=== PATIENT | female | born 1940 | race Caucasian/White ===

== ENCOUNTER 2020-01-25 10:23 | Observation (INO) | payer MEDICARE, OTHER ==
--- NOTE | 2020-01-25 11:06 | EDM.PDOC ---
ED HPI GENERAL MEDICAL PROBLEM - General Chief Complaint: Abdominal Pain Stated Complaint: WEAKNESS/CAN'T TALK/STOMACH PAIN Time Seen by Provider: 01/25/20 10:45 Source of Information: Reports: Patient History Limitations: Reports: No Limitations - History of Present Illness INITIAL COMMENTS - FREE TEXT/NARRATIVE: This 79 yo female patient was brought to the ED by her sister due to not feeling well. The patient reports she has been having difficulties eating over the past month. The patient reports she was in to see Dr. Simons 2 weeks ago and given a steroid, but reports no improvement in her symptoms. When asked what the patient means by "not feeling well", the patient reports she gets stomach pains when she thinks about eating. The patient reports she has been loosing weight, but does not know how much weight she may have lost. The patient reports shortness of breath, but no progression of her shortness of breath. The patient reports she continues to smoke ("as much as she can"). The patient reports she is "not ready to go to the jail." Onset: Unknown/Unsure Duration: Week(s):, Constant Location: Reports: Generalized Quality: Reports: Other Severity: Moderate Improves with: Reports: None Worsens with: Reports: None Context: Reports: Other Associated Symptoms: Reports: No Other Symptoms - Related Data Allergies Allergy/AdvReac Type Severity Reaction Status Date / Time prednisone AdvReac Severe bilateral Verified 08/16/13 12:44 arm and shoulder pain Home Meds: Home Meds ALPRAZolam [Xanax] 0.25 mg PO QID PRN 08/16/13 [History] Aspirin [Ecotrin] 81 mg PO DAILY 08/16/13 [History] Calcium Carbonate/Vitamin D3 [Calcium 600-Vit D3 400 Tablet] 1 tab PO BID 08/16/13 [History] Cetirizine HCl [Zyrtec] 10 mg PO DAILY PRN 08/16/13 [History] Lisinopril 10 mg PO DAILY 08/16/13 [History] Lutein/Minerals/Vit A,C & E [Ocuvite] 1 tab PO DAILY 08/16/13 [History] hydroCHLOROthiazide [Hydrochlorothiazide] 25 mg PO DAILY 08/16/13 [History] Past Medical History HEENT History: Reports: Macular Degeneration Cardiovascular History: Reports: None Respiratory History: Reports: None Gastrointestinal History: Reports: None Genitourinary History: Reports: None CNA PCT History: Reports: None Musculoskeletal History: Reports: None Neurological History: Reports: None Psychiatric History: Reports: None Endocrine/Metabolic History: Reports: None Hematologic History: Reports: None Immunologic History: Reports: None Oncologic (Cancer) History: Reports: None Dermatologic History: Reports: None - Infectious Disease History Infectious Disease History: Reports: None - Past Surgical History Head Surgeries/Procedures: Reports: None Social & Family History - Family History Family Medical History: Noncontributory - Tobacco Use Smoking Status *Q: Heavy Tobacco Smoker Years of Tobacco use: 70 Packs/Tins Daily: 2 - Caffeine Use Caffeine Use: Reports: Soda - Recreational Drug Use Recreational Drug Use: No ED ROS GENERAL - Review of Systems Review Of Systems: Comprehensive ROS is negative, except as noted in HPI. ED EXAM, GENERAL - Physical Exam Exam: See Below Exam Limited By: No Limitations General Appearance: Alert, WD/WN, No Apparent Distress Eye Exam: Bilateral Eye: EOMI, Normal Inspection, PERRL Ears: Normal External Exam, Normal Canal, Hearing Grossly Normal, Normal TMs Nose: Normal Inspection, Normal Mucosa, No Blood Throat/Mouth: Normal Inspection, Normal Lips, Normal Teeth, Normal Gums, Normal Oropharynx, Normal Voice, No Airway Compromise Head: Atraumatic, Normocephalic Neck: Normal Inspection, Supple, Non-Tender, Full Range of Motion Respiratory/Chest: Decreased Breath Sounds, Crackles Cardiovascular: Normal Peripheral Pulses, Regular Rate, Rhythm, No Edema, No Gallop, No JVD, No Murmur, No Rub GI/Abdominal: Normal Bowel Sounds, Soft, Non-Tender, No Distention, No Abnormal Bruit, No Mass (Female) Exam: Deferred Rectal (Female) Exam: Deferred Back Exam: Normal Inspection, Full Range of Motion, NT Extremities: Mottled Neurological: Alert, Oriented, CN II-XII Intact, Normal Cognition, Normal Gait Psychiatric: Normal Affect, Normal Mood Skin Exam: Warm, Dry, Intact, No Rash Lymphatic: No Adenopathy Course - Vital Signs Last Recorded V/S: Last Vital Signs Temp 36.6 C 01/25/20 10:39 Pulse 74 01/25/20 10:39 Resp 18 01/25/20 10:39 BP 93/53 L 01/25/20 10:39 Pulse Ox 83 L 07/21/20 10:39 - Orders/Labs/Meds Orders: Active Orders 24 hr Category Date Time Status Admission Diagnosis [ADT] Urgent ADT 01/25/20 12:00 Ordered Admission Status [Patient Status] [ADT] Routine ADT 01/25/20 12:00 Ordered EKG Documentation Completion [RC] STAT Care 01/25/20 10:37 Active CULTURE BLOOD [BC] Stat Lab 01/25/20 10:37 Ordered REFLEX LACTIC ACID YES OR NO [CHEM] Routine Lab 01/25/20 11:38 Received UA RFX RAMBO AND CULT IF INDIC [URIN] Urgent Lab 01/25/20 10:37 Ordered Labs: Laboratory Tests 01/25/20 01/25/20 01/25/20 Range/Units 10:45 10:58 10:58 WBC 9.1 (5.0-10.0) 10^3/uL RBC 3.48 L (4.2-5.4) 10^6/uL Hgb 11.7 L (12.0-16.0) g/dL Hct 34.2 L (37.0-47.0) % MCV 98.3 D (80-100) fL MCH 33.6 (27.0-34.0) pg MCHC 34.2 (33.0-35.0) g/dL Plt Count 303 D (150-450) 10^3/uL Neut % (Auto) 81.6 H (42.2-75.2) % Lymph % (Auto) 8.0 L (20.5-50.1) % Nash % (Auto) 10.0 H (2-8) % Eos % (Auto) 0.2 L (1.0-3.0) % Baso % (Auto) 0.2 (0.0-1.0) % Sodium 136 (136-145) mmol/L Potassium 4.2 (3.5-5.1) mmol/L Chloride 100 (98-107) mmol/L Carbon Dioxide 24 (21-32) mmol/L Anion Gap 16.2 H (7-13) mEq/L BUN 87 H (7-18) mg/dL Creatinine 2.82 H (0.55-1.02) mg/dL Est Cr Clr Drug Dosing 8.79 mL/min Estimated GFR (MDRD) 16 BUN/Creatinine Ratio 30.9 (No establ ref range) Glucose 172 H (74-99) mg/dL Lactic Acid (0.4-2.0) mmol/L Calcium 9.6 (8.5-10.1) mg/dL Total Bilirubin 0.3 (0.2-1.0) mg/dL AST 22 (15-37) U/L ALT 30 (14-59) U/L Alkaline Phosphatase 60 (46-116) U/L Troponin I 0.055 (0.000-0.056) ng/mL Total Protein 6.6 (6.4-8.2) g/dL Albumin 3.4 (3.4-5.0) g/dL Globulin 3.2 Albumin/Globulin Ratio 1.1 COVID-19 (DARIO) Negative (NEGATIVE) 01/25/20 Range/Units 10:58 WBC (5.0-10.0) 10^3/uL RBC (4.2-5.4) 10^6/uL Hgb (12.0-16.0) g/dL Hct (37.0-47.0) % MCV (80-100) fL MCH (27.0-34.0) pg MCHC (33.0-35.0) g/dL Plt Count (150-450) 10^3/uL Neut % (Auto) (42.2-75.2) % Lymph % (Auto) (20.5-50.1) % Nash % (Auto) (2-8) % Eos % (Auto) (1.0-3.0) % Baso % (Auto) (0.0-1.0) % Sodium (136-145) mmol/L Potassium (3.5-5.1) mmol/L Chloride (98-107) mmol/L Carbon Dioxide (21-32) mmol/L Anion Gap (7-13) mEq/L BUN (7-18) mg/dL Creatinine (0.55-1.02) mg/dL Est Cr Clr Drug Dosing mL/min Estimated GFR (MDRD) BUN/Creatinine Ratio (No establ ref range) Glucose (74-99) mg/dL Lactic Acid 2.2 H* (0.4-2.0) mmol/L Calcium (8.5-10.1) mg/dL Total Bilirubin (0.2-1.0) mg/dL AST (15-37) U/L ALT (14-59) U/L Alkaline Phosphatase (46-116) U/L Troponin I (0.000-0.056) ng/mL Total Protein (6.4-8.2) g/dL Albumin (3.4-5.0) g/dL Globulin Albumin/Globulin Ratio COVID-19 (DARIO) (NEGATIVE) Departure - Departure Time of Disposition: 12:02 Disposition: Admitted As Inpatient 64 Condition: Fair Clinical Impression: Dehydration Acute renal failure Qualifiers: Acute renal failure type: unspecified Qualified Code(s): N17.9 - Acute kidney failure, unspecified - Discharge Information *PRESCRIPTION DRUG MONITORING PROGRAM REVIEWED*: Not Applicable *COPY OF PRESCRIPTION DRUG MONITORING REPORT IN PATIENT JULIET: Not Applicable Care Plan Goals: Discussed the patient's history, examination, lab, EKG and x-ray results with Dr. Simons. Dr. Simons accepted the patient for continued evaluation and further management as an observation patient at [facility]. Sepsis Event Note (ED) - Evaluation Sepsis Screening Result: No Definite Risk - Focused Exam Vital Signs: Vital Signs Temp Pulse Resp BP Pulse Ox 01/25/20 10:39 36.6 C 74 18 93/53 L 83 L - My Orders Last 24 Hours: My Active Orders 01/25/20 10:37 EKG Documentation Completion [RC] STAT CULTURE BLOOD [BC] Stat UA RFX RAMBO AND CULT IF INDIC [URIN] Urgent 01/25/20 11:38 REFLEX LACTIC ACID YES OR NO [CHEM] Routine 01/25/20 12:00 Admission Diagnosis [ADT] Urgent Admission Status [Patient Status] [ADT] Routine - Assessment/Plan Last 24 Hours: My Active Orders 01/25/20 10:37 EKG Documentation Completion [RC] STAT CULTURE BLOOD [BC] Stat UA RFX RAMBO AND CULT IF INDIC [URIN] Urgent 01/25/20 11:38 REFLEX LACTIC ACID YES OR NO [CHEM] Routine 01/25/20 12:00 Admission Diagnosis [ADT] Urgent Admission Status [Patient Status] [ADT] Routine
--- NOTE | 2020-01-25 11:29 | CR ---
PROCEDURE INFORMATION: Exam: XR Chest, 2 Views Exam date and time: 01/25/2020 10:56 AM Age: 79 years old Clinical indication: Shortness of breath; Additional info: Short of breath TECHNIQUE: Imaging protocol: XR of the chest Views: 2 views. COMPARISON: CT Chest w Cont 08/16/2013 2:39 PM FINDINGS: Lungs: The lungs are hyperinflated. Mild coarsening of the lung markings is likely chronic. There is no focal consolidation. Pleural space: Unremarkable. No pleural effusion. No pneumothorax. Heart/Mediastinum: Unremarkable. No cardiomegaly. Bones/joints: Degenerative changes involve the spine. Soft tissues: Nipple shadows project bilaterally. IMPRESSION: Hyperinflation and chronic changes, without focal disease.
[2020-01-25 11:35] LABS: ANION GAP 16.2 mEq/L (7-13)
[2020-01-25] MEDS ORDERED: Docusate Sodium 100 MG Cap PO PRN (12:20)
[2020-01-25] MEDS ORDERED: Acetaminophen 325 MG Tab PO PRN (12:20)
[2020-01-25] MEDS: Lactated Ringers 1,000 ML IV SCH ×2 (14:28→20:54)
--- NOTE | 2020-01-25 15:08 | HP ---
CHIEF COMPLAINT: Weight loss and dyspepsia. HISTORY OF PRESENT ILLNESS: The patient is an 79-year-old lady with past medical history of hypertension and anxiety, was admitted through the emergency room because the patient has not been feeling well for the last couple of weeks and has been having difficulty eating for the past month because every time she eats she would have some dyspepsia and some epigastric discomfort, and with this, she has been losing some weight because of decreased oral intake. The patient denies though any chest pain, fever, chills, shortness of breath. Denies any melena, hematochezia, or dysuria nor any other agitated symptoms, and because of the above, she was seen in the emergency room, and in the Emergency Room, her BUN and creatinine were elevated, and she is slightly anemic. Because of the above, she was then admitted for further evaluation and management. PAST MEDICAL HISTORY: As in [facility]. FAMILY HISTORY: Noncontributory. SOCIAL HISTORY: The patient is a . Smokes cigarettes on a regular basis. Drinks alcohol occasionally. REVIEW OF SYSTEMS: As in [facility]. The rest of the review of systems is negative. HOME MEDICATION: 1. Xanax. 2. Aspirin. 3. Calcium with vitamin D. 4. Zyrtec. 5. Lisinopril. 6. Ocuvite. 7. Hydrochlorothiazide. ALLERGIES: No known drug allergies. PHYSICAL EXAMINATION: General: The patient is alert and oriented, not in any acute distress. Vital Signs: Blood pressure is 93/53, pulse of 74, respiration of 18, and saturation is 83% on room air. SHEENT: Normocephalic. There are pink palpebral conjunctivae. Sclerae anicteric. No JVD. No lymphadenopathy. Heart: Regular rate and rhythm. Normal S1 and S2. No gallops. No rubs. Lungs: Diminished breath sounds on both bases, but no significant crackles, no wheezing. Abdomen: Scaphoid, soft. There is mild direct tenderness in epigastric area. No rebound. Bowel sounds positive. Extremities: Negative for any pedal edema. No calf tenderness. LABORATORY DATA: CBC: WBC is 9.1, hemoglobin is 11.7, hematocrit is 34.2, platelet is 303. Sodium is 136, potassium is 4.2, chloride of 100, carbon dioxide is 24, anion gap is 16.2, BUN is 87, and creatinine is 2.82. Glucose is 172. Lactic acid is 2.2. The rest of the panel is negative and COVID-19 is negative. A chest x-ray shows some signs of COPD; otherwise, no focal consolidation or cardiomegaly, and there are no lung masses. ADMITTING DIAGNOSES: 1. Abdominal pain/dyspepsia, possible gastritis versus peptic ulcer disease. 2. Acute kidney injury, most likely from dehydration. 3. Mild anemia. 4. History of hypertension. 5. Anxiety. TREATMENT PLAN: The patient is going to be admitted to observation. She will be given IV fluids. She will be also given IV Protonix. We will send her stool for Hemoccult testing, and we will recheck BUN, creatinine in a.m. as well as her CBC. She will be a full code. [facility] /[id number]
[2020-01-25] MEDS: Nicotine 21 MG/24 Hr Patch TRDERM SCH (17:09)
--- NOTE | 2020-01-25 17:36 | CT ---
EXAMINATION: Abdomen Pelvis wo Cont SEX: Female AGE: 79 years CLINICAL HISTORY: 79-year-old, 80 lbs. 7 oz. female smoker with unexplained abdominal pain. "Left femoral neck fracture" (2007) and "large pleural effusion with underlying infiltrate/atelectasis" reported on previous CT scan chest, August 2013. SCAN TECHNIQUE: Volume acquisition of data unenhanced CT scan abdomen and pelvis obtained with the patient lying supine on the Siemens multislice scanner [place], [place]. All data archived in the PACS system for storage, reformatting axial/sagittal/coronal planes and study. INTERPRETATION: 1. Hyperinflation of the lung morgan and some atelectasis/pleural parenchymal scar, left base (tiny 4 mm nodule posterior segment right lower lobe). Lung bases otherwise clear. 2. Calcification scattered along the course of normal caliber aortoiliac vessels. No aneurysm or dissection. 3. 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 Clinical? Unenhanced liver, stomach, spleen, pancreas and kidneys unremarkable. 4. No abdominal or pelvic mass lesion. No sign of mesenteric or retroperitoneal lymphadenopathy. 5. No mechanical bowel obstruction, ascites or free intraperitoneal air. 6. Total left hip (orthopedic) replacement. Osteoporosis, exaggerated lumbar lordosis, L5-S1 disc disease. CONCLUSION: No sign of intra-abdominal malignancy, abdominal aortic aneurysm, mechanical bowel obstruction, or acute peritonitis. Lung bases hyperinflated but no appreciable infiltrate, mass or effusion. Left hip prosthesis. L5-S1 disc disease. 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
[2020-01-25] MEDS: ALPRAZolam 0.25 MG Tab PO PRN (21:00)
[2020-01-25] MEDS: Pantoprazole 40 MG Vial IVPUSH SCH (21:03)
[2020-01-25] MEDS: rOPINIRole 2 MG Tab PO SCH (21:40)
[2020-01-26] MEDS: Lactated Ringers 1,000 ML IV SCH ×2 (04:40→13:12)
[2020-01-26 06:08] LABS: ANION GAP 11.9 mEq/L (7-13)
[2020-01-26] MEDS: Nicotine 21 MG/24 Hr Patch TRDERM SCH (08:50)
[2020-01-26] MEDS: Enoxaparin 30 MG/0.3 ML Syringe SUBCUT SCH (08:55)
[2020-01-26] MEDS: Pantoprazole 40 MG Vial IVPUSH SCH ×2 (09:33→20:55)
--- NOTE | 2020-01-26 09:59 | PCM.PN ---
- General Info Date of Service: 01/26/20 Admission Dx/Problem (Free Text): Acute kidney injury Subjective Update: No acute events overnight. Reports that she is feeling better. Was able to eat half of her breakfast. Denies fevers, chills, nausea, vomiting, diarrhea, constipation, dysuria, hematuria, or any new symptoms. - Patient Data Vitals - Most Recent: Last Vital Signs Temp 98.5 F 01/26/20 08:00 Pulse 77 01/26/20 08:00 Resp 16 01/26/20 08:00 BP 123/49 L 01/26/20 08:00 Pulse Ox 100 01/26/20 08:00 Weight - Most Recent: 80 lb 7 oz I&O - Last 24 Hours: Intake & Output 01/25/20 01/26/20 01/26/20 22:59 06:59 14:59 Intake Total 1322 893 250 Output Total 500 550 Balance 822 343 250 Lab Results Last 24 Hours: Laboratory Results - last 24 hr 01/25/20 01/25/20 01/25/20 Range/Units 10:45 10:50 10:58 WBC 9.1 (5.0-10.0) 10^3/uL RBC 3.48 L (4.2-5.4) 10^6/uL Hgb 11.7 L (12.0-16.0) g/dL Hct 34.2 L (37.0-47.0) % MCV 98.3 D (80-100) fL MCH 33.6 (27.0-34.0) pg MCHC 34.2 (33.0-35.0) g/dL Plt Count 303 D (150-450) 10^3/uL Neut % (Auto) 81.6 H (42.2-75.2) % Lymph % (Auto) 8.0 L (20.5-50.1) % Miller % (Auto) 10.0 H (2-8) % Eos % (Auto) 0.2 L (1.0-3.0) % Baso % (Auto) 0.2 (0.0-1.0) % ESR (0-20) mm/hr Sodium (136-145) mmol/L Potassium (3.5-5.1) mmol/L Chloride (98-107) mmol/L Carbon Dioxide (21-32) mmol/L Anion Gap (7-13) mEq/L BUN (7-18) mg/dL Creatinine (0.55-1.02) mg/dL Est Cr Clr Drug Dosing mL/min Estimated GFR (MDRD) BUN/Creatinine Ratio (No establ ref range) Glucose (74-99) mg/dL Lactic Acid (0.4-2.0) mmol/L Calcium (8.5-10.1) mg/dL Total Bilirubin (0.2-1.0) mg/dL AST (15-37) U/L ALT (14-59) U/L Alkaline Phosphatase (46-116) U/L Troponin I (0.000-0.056) ng/mL C-Reactive Protein 1.7 H (0.0-0.9) mg/dL Total Protein (6.4-8.2) g/dL Albumin (3.4-5.0) g/dL Globulin Albumin/Globulin Ratio Amylase (25-115) U/L Lipase (73-393) U/L COVID-19 (DARIO) Negative (NEGATIVE) 01/25/20 01/25/20 01/25/20 Range/Units 10:58 10:58 10:58 WBC (5.0-10.0) 10^3/uL RBC (4.2-5.4) 10^6/uL Hgb (12.0-16.0) g/dL Hct (37.0-47.0) % MCV (80-100) fL MCH (27.0-34.0) pg MCHC (33.0-35.0) g/dL Plt Count (150-450) 10^3/uL Neut % (Auto) (42.2-75.2) % Lymph % (Auto) (20.5-50.1) % Miller % (Auto) (2-8) % Eos % (Auto) (1.0-3.0) % Baso % (Auto) (0.0-1.0) % ESR 23 H (0-20) mm/hr Sodium 136 (136-145) mmol/L Potassium 4.2 (3.5-5.1) mmol/L Chloride 100 (98-107) mmol/L Carbon Dioxide 24 (21-32) mmol/L Anion Gap 16.2 H (7-13) mEq/L BUN 87 H (7-18) mg/dL Creatinine 2.82 H (0.55-1.02) mg/dL Est Cr Clr Drug Dosing 8.79 mL/min Estimated GFR (MDRD) 16 BUN/Creatinine Ratio 30.9 (No establ ref range) Glucose 172 H (74-99) mg/dL Lactic Acid 2.2 H* (0.4-2.0) mmol/L Calcium 9.6 (8.5-10.1) mg/dL Total Bilirubin 0.3 (0.2-1.0) mg/dL AST 22 (15-37) U/L ALT 30 (14-59) U/L Alkaline Phosphatase 60 (46-116) U/L Troponin I 0.055 (0.000-0.056) ng/mL C-Reactive Protein (0.0-0.9) mg/dL Total Protein 6.6 (6.4-8.2) g/dL Albumin 3.4 (3.4-5.0) g/dL Globulin 3.2 Albumin/Globulin Ratio 1.1 Amylase (25-115) U/L Lipase (73-393) U/L COVID-19 (DARIO) (NEGATIVE) 01/25/20 01/25/20 01/26/20 Range/Units 10:58 15:30 05:42 WBC 7.7 (5.0-10.0) 10^3/uL RBC 3.30 L (4.2-5.4) 10^6/uL Hgb 10.9 L (12.0-16.0) g/dL Hct 32.5 L (37.0-47.0) % MCV 98.5 (80-100) fL MCH 33.0 (27.0-34.0) pg MCHC 33.5 (33.0-35.0) g/dL Plt Count 261 (150-450) 10^3/uL Neut % (Auto) 76.2 H (42.2-75.2) % Lymph % (Auto) 10.2 L (20.5-50.1) % Miller % (Auto) 12.7 H (2-8) % Eos % (Auto) 0.8 L (1.0-3.0) % Baso % (Auto) 0.1 (0.0-1.0) % ESR (0-20) mm/hr Sodium (136-145) mmol/L Potassium (3.5-5.1) mmol/L Chloride (98-107) mmol/L Carbon Dioxide (21-32) mmol/L Anion Gap (7-13) mEq/L BUN (7-18) mg/dL Creatinine (0.55-1.02) mg/dL Est Cr Clr Drug Dosing mL/min Estimated GFR (MDRD) BUN/Creatinine Ratio (No establ ref range) Glucose (74-99) mg/dL Lactic Acid 1.6 (0.4-2.0) mmol/L Calcium (8.5-10.1) mg/dL Total Bilirubin (0.2-1.0) mg/dL AST (15-37) U/L ALT (14-59) U/L Alkaline Phosphatase (46-116) U/L Troponin I (0.000-0.056) ng/mL C-Reactive Protein (0.0-0.9) mg/dL Total Protein (6.4-8.2) g/dL Albumin (3.4-5.0) g/dL Globulin Albumin/Globulin Ratio Amylase 41 (25-115) U/L Lipase 116 (73-393) U/L COVID-19 (DARIO) (NEGATIVE) 01/26/20 Range/Units 05:42 WBC (5.0-10.0) 10^3/uL RBC (4.2-5.4) 10^6/uL Hgb (12.0-16.0) g/dL Hct (37.0-47.0) % MCV (80-100) fL MCH (27.0-34.0) pg MCHC (33.0-35.0) g/dL Plt Count (150-450) 10^3/uL Neut % (Auto) (42.2-75.2) % Lymph % (Auto) (20.5-50.1) % Miller % (Auto) (2-8) % Eos % (Auto) (1.0-3.0) % Baso % (Auto) (0.0-1.0) % ESR (0-20) mm/hr Sodium 142 (136-145) mmol/L Potassium 3.9 (3.5-5.1) mmol/L Chloride 105 (98-107) mmol/L Carbon Dioxide 29 (21-32) mmol/L Anion Gap 11.9 (7-13) mEq/L BUN 59 H D (7-18) mg/dL Creatinine 1.25 H D (0.55-1.02) mg/dL Est Cr Clr Drug Dosing 20.33 mL/min Estimated GFR (MDRD) 41 BUN/Creatinine Ratio (No establ ref range) Glucose 93 (74-99) mg/dL Lactic Acid (0.4-2.0) mmol/L Calcium 8.6 (8.5-10.1) mg/dL Total Bilirubin (0.2-1.0) mg/dL AST (15-37) U/L ALT (14-59) U/L Alkaline Phosphatase (46-116) U/L Troponin I (0.000-0.056) ng/mL C-Reactive Protein (0.0-0.9) mg/dL Total Protein (6.4-8.2) g/dL Albumin (3.4-5.0) g/dL Globulin Albumin/Globulin Ratio Amylase (25-115) U/L Lipase (73-393) U/L COVID-19 (DARIO) (NEGATIVE) Nico Results Last 24 Hours: Microbiology 01/26/20 07:40 Stool Occult Blood (NICO) - Final Stool / Feces NEGATIVE OCCULT BLOOD REFERENCE RANGE: NEGATIVE Med Orders - Current: Current Medications Acetaminophen (Tylenol) 650 mg PO Q4H PRN PRN Reason: Pain (Mild 1-3)/fever Alprazolam (Xanax) 0.25 mg PO QID PRN PRN Reason: Anxiety Last Admin: 01/25/20 21:00 Dose: 0.25 mg Documented by: Docusate Sodium (Colace) 100 mg PO BID PRN PRN Reason: Constipation Enoxaparin Sodium (Lovenox) 30 mg SUBCUT DAILY [facility] Last Admin: 01/26/20 08:55 Dose: 30 mg Documented by: Lactated Ringer's (Ringers, Lactated) 1,000 mls @ 125 mls/hr IV ASDIRECTED [facility] Last Admin: 01/26/20 04:40 Dose: 125 mls/hr Documented by: Miscellaneous Information (Check Patch) 1 ea TRDERM BEDTIME [facility] Last Admin: 01/25/20 21:03 Dose: 1 ea Documented by: Nicotine (Habitrol) 21 mg TRDERM DAILY [facility] Last Admin: 01/26/20 08:50 Dose: 21 mg Documented by: Pantoprazole Sodium (Protonix Iv) 40 mg IVPUSH Q12HR [facility] Last Admin: 01/26/20 09:33 Dose: 40 mg Documented by: Ropinirole HCl (Requip) 1 mg PO BEDTIME [facility] Last Admin: 01/25/20 21:40 Dose: 1 mg Documented by: Sodium Chloride (Saline Flush) 10 ml FLUSH ASDIRECTED PRN PRN Reason: Keep Vein Open - Exam General: Alert, Oriented, Cooperative, No Acute Distress HEENT: Pupils Equal, Pupils Reactive, Mucous Membr. Moist/[place] Neck: Supple, Trachea Midline Lungs: Clear to Auscultation, Normal Respiratory Effort Cardiovascular: Regular Rate, Regular Rhythm, No Murmurs GI/Abdominal Exam: Normal Bowel Sounds, Soft, Non-Tender Extremities: Non-Tender, No Pedal Edema Peripheral Pulses: 1+: Dorsalis Pedis (L), Dorsalis Pedis (R), 2+: Radial (L), Radial (R) Skin: Warm, Dry, Intact Neurological: No New Focal Deficit Psy/Mental Status: Alert, Normal Affect, Normal Mood Sepsis Event Note - Evaluation Sepsis Screening Result: No Definite Risk - Focused Exam Vital Signs: Vital Signs Temp Pulse Resp BP Pulse Ox 01/26/20 08:00 98.5 F 77 16 123/49 L 100 01/26/20 05:00 98 F 80 20 141/58 H 97 01/25/20 22:30 98.5 F 61 20 123/56 L 94 L Date Exam was Performed: 01/26/20 Time Exam was Performed: 09:56 - Problem List & Annotations (1) Anemia SNOMED Code(s): 575136326 Code(s): D64.9 - ANEMIA, UNSPECIFIED Status: Acute Current Visit: Yes (2) Acute renal failure SNOMED Code(s): 44788718 Code(s): N17.9 - ACUTE KIDNEY FAILURE, UNSPECIFIED Status: Acute Current Visit: No Qualifiers: Acute renal failure type: unspecified Qualified Code(s): N17.9 - Acute kidney failure, unspecified (3) Dehydration SNOMED Code(s): 88167422 Code(s): E86.0 - DEHYDRATION Status: Acute Current Visit: No (4) Unexplained weight loss SNOMED Code(s): 760258501 Code(s): R63.4 - ABNORMAL WEIGHT LOSS Status: Acute Current Visit: No - Problem List Review Problem List Initiated/Reviewed/Updated: Yes - Plan Plan:: Patient is an 79-year-old female with medical history significant for hypertension, anxiety, atrial fibrillation, osteoporosis, and parapneumonic effusion who is admitted for abdominal pain dyspepsia as well as acute kidney injury. Acute kidney injury: Patient presented with creatinine of 2.3. Improved with IV fluids to 1.25. Baseline creatinine is 0.7 Continue IV fluids Monitor renal function Avoid nephrotoxins #Abdominal pain/dyspepsia: Resolved. Patient reports that she longer has abdominal pain. States that appetite is improved and she was able to eat about half of her plate this morning Need to monitor #Anorexia #Adult BMI less than 19 Dietitian consulted, will appreciate input Continue nutritional needs #History of hypertension: Blood pressures at goal Continue current regimen #Anemia: Hemoglobin of 11.7, has gone down to 10.9, suspect hemodilution Monitor CBC
[2020-01-26] MEDS ORDERED: Loratadine 10 MG Tab PO PRN (11:38)
[2020-01-26] MEDS: Sodium Chloride 0.9% 10 ML Syringe FLUSH PRN ×2 (20:54→21:01)
[2020-01-26] MEDS: rOPINIRole 2 MG Tab PO SCH (21:04)
[2020-01-26] MEDS: ALPRAZolam 0.25 MG Tab PO PRN (21:06)
[2020-01-27 09:07] LABS: ANION GAP 13.1 mEq/L (7-13)
[2020-01-27] MEDS: Pantoprazole 40 MG Vial IVPUSH SCH (09:25)
[2020-01-27] MEDS: Nicotine 21 MG/24 Hr Patch TRDERM SCH (09:25)
[2020-01-27] MEDS: Enoxaparin 30 MG/0.3 ML Syringe SUBCUT SCH (09:25)
[2020-01-27] MEDS ORDERED: Potassium Chloride 10 MEQ Tab.ER PO ONE (10:00)
[2020-01-27] MEDS ORDERED: Phosphorus #1 250 MG Tab PO SCH (10:00)
--- NOTE | 2020-01-27 10:03 | PCM.DCSUM1 ---
Discharge Summary - Hospital Course Free Text/Narrative:: Patient is an 79-year-old female with medical history significant for hypertension, anxiety, atrial fibrillation, osteoporosis, and parapneumonic effusion who is admitted for abdominal pain dyspepsia as well as acute kidney injury. Patient's creatinine on presentation was 2.3. Improved with IV fluids to 0.98. Dietitian was consulted. Patient's oral intake improved significantly. Her potassium came back at 3.1. She was given oral potassium replacement. Lisinopril was resumed. She had magnesium of 1.2 and received oral magnesium replacement. Phosphorus was 2.4 and she received phosphorus replacement. She is to follow-up with PCP and to obtain renal function panel with magnesium as outpatient. She is to continue oral phosphorus, magnesium, and potassium replacement until she is seen by PCP. Diagnosis: Stroke: No - Discharge Data Discharge Date: 01/27/20 Discharge Disposition: Home, Self-Care 01 Condition: Good - Referral to Home Health Primary Care Physician: PCP None - Discharge Diagnosis/Problem(s) (1) Anemia SNOMED Code(s): 250503956 ICD Code: D64.9 - ANEMIA, UNSPECIFIED Status: Acute Current Visit: Yes (2) Acute renal failure SNOMED Code(s): 34241129 ICD Code: N17.9 - ACUTE KIDNEY FAILURE, UNSPECIFIED Status: Acute Current Visit: No Qualifiers: Acute renal failure type: unspecified Qualified Code(s): N17.9 - Acute kidney failure, unspecified (3) Dehydration SNOMED Code(s): 19320015 ICD Code: E86.0 - DEHYDRATION Status: Acute Current Visit: No (4) Unexplained weight loss SNOMED Code(s): 864195042 ICD Code: R63.4 - ABNORMAL WEIGHT LOSS Status: Acute Current Visit: No - Discharge Plan *PRESCRIPTION DRUG MONITORING PROGRAM REVIEWED*: Not Applicable *COPY OF PRESCRIPTION DRUG MONITORING REPORT IN PATIENT JULIET: Not Applicable Prescriptions/Med Rec: Magnesium Oxide 250 mg PO BIDM #10 tablet Phosphorus #1 [Neutra-Phos] 250 mg PO BID #10 tab Home Medications: Home Meds ALPRAZolam [Xanax] 0.5 mg PO BID PRN 08/16/13 [History] Cetirizine HCl [Zyrtec] 10 mg PO DAILY PRN 08/16/13 [History] Lisinopril 20 mg PO DAILY 02/10/14 [History] hydroCHLOROthiazide [Hydrochlorothiazide] 25 mg PO DAILY 08/16/13 [History] Aspirin [Aspirin EC] 81 mg PO DAILY 01/25/20 [History] Calc/D3/Mag/Zn/Jayla/Jamir/[place] [Calcium 600 MG Plus Vit D] 1 tab PO BID 01/25/20 [History] Cholecalciferol (Vitamin D3) [Vitamin D] 2,000 mg PO DAILY 01/25/20 [History] Diltiazem [Tiazac] 300 mg PO DAILY 01/25/20 [History] Escitalopram [Lexapro] 10 mg PO DAILY 01/25/20 [History] Glucosamine HCl 2,000 mg PO DAILY 01/25/20 [History] Lutein/Minerals/Vit A,C & E [Ocuvite] 1 tab PO BID 01/25/20 [History] Potassium Chloride [Klor-Con 10] 10 meq PO DAILY 01/25/20 [History] Raloxifene [Evista] 60 mg PO DAILY 01/25/20 [History] rOPINIRole [Requip] 1 mg PO DAILY 01/25/20 [History] traMADol [Ultram] 50 mg PO Q8HR PRN 01/25/20 [History] Magnesium Oxide 250 mg PO BIDM #10 tablet 01/27/20 [Rx] Phosphorus #1 [Neutra-Phos] 250 mg PO BID #10 tab 01/27/20 [Rx] Phosphorus #1 [Neutra-Phos] 250 mg PO QID tablet 01/27/20 [Rx] Referrals: Sebas Simons MD [Physician] - - Discharge Summary/Plan Comment DC Time >30 min.: Yes - General Info Date of Service: 01/27/20 Admission Dx/Problem (Free Text: Acute kidney injury Subjective Update: No acute events overnight. Reports that she is feeling better. Has had improved oral intake.. Denies fevers, chills, nausea, vomiting, diarrhea, constipation, dysuria, hematuria, or any new symptoms. - Patient Data Vitals - Most Recent: Last Vital Signs Temp 97.6 F 01/27/20 07:25 Pulse 83 01/27/20 07:25 Resp 18 01/27/20 07:25 BP 133/72 01/27/20 07:25 Pulse Ox 100 01/26/20 20:10 Weight - Most Recent: 80 lb 7 oz I&O - Last 24 hours: Intake & Output 01/26/20 01/27/20 01/27/20 22:59 06:59 14:59 Intake Total 600 400 Output Total 100 Balance 600 300 Lab Results - Last 24 hrs: Laboratory Results - last 24 hr 01/27/20 01/27/20 Range/Units 08:50 08:50 Sodium 143 (136-145) mmol/L Potassium 3.1 L (3.5-5.1) mmol/L Chloride 103 (98-107) mmol/L Carbon Dioxide 30 (21-32) mmol/L Anion Gap 13.1 H (7-13) mEq/L BUN 30 H D (7-18) mg/dL Creatinine 0.98 (0.55-1.02) mg/dL Est Cr Clr Drug Dosing 25.93 mL/min Estimated GFR (MDRD) 54 Glucose 142 H (74-99) mg/dL Calcium 8.4 L (8.5-10.1) mg/dL Phosphorus 2.4 L (2.6-4.7) mg/dL Magnesium 1.2 L (1.8-2.4) mg/dL RAMBO Results - Last 24 hrs: Microbiology 01/26/20 07:40 Stool Occult Blood (RAMBO) - Final Stool / Feces NEGATIVE OCCULT BLOOD REFERENCE RANGE: NEGATIVE Med Orders - Current: Current Medications Acetaminophen (Tylenol) 650 mg PO Q4H PRN PRN Reason: Pain (Mild 1-3)/fever Alprazolam (Xanax) 0.25 mg PO QID PRN PRN Reason: Anxiety Last Admin: 01/26/20 21:06 Dose: 0.25 mg Documented by: Docusate Sodium (Colace) 100 mg PO BID PRN PRN Reason: Constipation Enoxaparin Sodium (Lovenox) 30 mg SUBCUT DAILY [facility] Last Admin: 01/27/20 09:25 Dose: Not Given Documented by: Loratadine (Claritin) 10 mg PO DAILY PRN PRN Reason: Congestion Last Admin: 01/26/20 13:15 Dose: 10 mg Documented by: Magnesium Oxide (Magnesium Oxide) 500 mg PO BIDMEALS [facility] Miscellaneous Information (Check Patch) 1 ea TRDERM BEDTIME [facility] Last Admin: 01/26/20 21:04 Dose: Not Given Documented by: Nicotine (Habitrol) 21 mg TRDERM DAILY [facility] Last Admin: 01/27/20 09:25 Dose: Not Given Documented by: Pantoprazole Sodium (Protonix Iv) 40 mg IVPUSH Q12HR [facility] Last Admin: 01/27/20 09:25 Dose: 40 mg Documented by: Ropinirole HCl (Requip) 1 mg PO BEDTIME [facility] Last Admin: 01/26/20 21:04 Dose: 1 mg Documented by: Sodium Chloride (Saline Flush) 10 ml FLUSH ASDIRECTED PRN PRN Reason: Keep Vein Open Last Admin: 01/26/20 21:01 Dose: 10 ml Documented by: Sodium Phosphate (Neutra-Phos) 500 mg PO QID [facility] Discontinued Medications Lactated Ringer's (Ringers, Lactated) 1,000 mls @ 75 mls/hr IV ASDIRECTED [facility] Last Admin: 01/26/20 13:12 Dose: 125 mls/hr Documented by: Potassium Chloride (Klor-Con 10) 40 meq PO ONETIME ONE Stop: 01/27/20 10:01 - Exam General: Reports: Alert, Oriented, Cooperative, No Acute Distress HEENT: Reports: Pupils Equal, Pupils Reactive, EOMI, Mucous Membr. Moist/[place] Neck: Reports: Supple, Trachea Midline Lungs: Reports: Clear to Auscultation, Normal Respiratory Effort Cardiovascular: Reports: Regular Rate, Regular Rhythm, No Murmurs GI/Abdominal Exam: Normal Bowel Sounds, Soft, Non-Tender Extremities: Non-Tender, No Pedal Edema, Normal Capillary Refill Skin: Reports: Warm, Dry, Intact Neurological: Reports: No New Focal Deficit Psy/Mental Status: Reports: Alert, Normal Affect
== END 2020-01-27 11:05 | disposition home or self-care (01) ==
LOC: DL.ED 10:23 → DL.MS 12:00
PROVIDERS: ADMIT Internal Medicine; ATTEND Internal Medicine
DX: N17.9 Acute kidney failure, unspecified (principal); E86.0 Dehydration; R10.13 Epigastric pain; F41.9 Anxiety disorder, unspecified; D64.9 Anemia, unspecified; R63.4 Abnormal weight loss; M81.0 Age-related osteoporosis without current pathological fracture; I48.91 Unspecified atrial fibrillation; I10 Essential (primary) hypertension; F17.210 Nicotine dependence, cigarettes, uncomplicated; Z20.828 Contact with and (suspected) exposure to other viral communicable diseases; Z68.1 Body mass index [BMI] 19.9 or less, adult; Z88.8 Allergy status to other drugs, medicaments and biological substances; Z79.82 Long term (current) use of aspirin; Z79.899 Other long term (current) drug therapy
CPT/HCPCS: 36415; 71046; 74176; 80048; 80053; 82150; 82272; 83605; 83690; 83735; 84100; 84484; 85025; 85651; 86140; 87040; 93005; 96361; 96372; 96374; 96376; 99284; 99285; A9270; C9113; G0378; J1650; J7120; U0002

== ENCOUNTER 2020-02-10 07:23 | Emergency (ER) | payer MEDICARE, OTHER ==
--- NOTE | 2020-02-10 07:26 | EDM.PDOC ---
"ED HPI GENERAL MEDICAL PROBLEM - General Chief Complaint: Lower Extremity Injury/Pain Stated Complaint: Fall Time Seen by Provider: 02/10/20 07:25 Source of Information: Reports: Patient, EMS, Old Records, RN, RN Notes Reviewed History Limitations: Reports: No Limitations - History of Present Illness INITIAL COMMENTS - FREE TEXT/NARRATIVE: Pt arrives to ER from home with c/o right hip pain. She states she fell last night on back porch. Pt has been able to bear weight. EMS reports no shortening or rotation of the right leg. Pain was unrelieved with ibuprofen, so she called 911. Denies any other injury. Pt indicates the pain is focal to the area of the right pubic rami. She is pain free while laying still supine. The pain is aggravated by ROM and especially weight bearing. Pt denies chest pain, cough, shortness of breath, eye irritation/drainage, loss of taste or smell, red tongue, rash or skin lesions, abdominal pain, N/V/D, fevers, chills, recent travel, or known exposure to confirmed or suspected COVID-19 cases. Onset: Sudden Onset Date: 02/09/20 Duration: Constant Location: Reports: Lower Extremity, Right Quality: Reports: Ache Severity: Severe Improves with: Reports: Immobilization Worsens with: Reports: Movement (and weight bearing/ambulation) Context: Reports: Other (Ground level fall.) Associated Symptoms: Reports: No Other Symptoms Treatments PROFESSOR OF RELIGION: Reports: NSAIDS Right Hip Pain Score (Numeric/FACES): 7 - Related Data Allergies Allergy/AdvReac Type Severity Reaction Status Date / Time prednisone AdvReac Severe bilateral Verified 01/25/20 12:24 arm and shoulder pain Home Meds: Home Meds ALPRAZolam [Xanax] 0.5 mg PO BID PRN 08/16/13 [History] Cetirizine HCl [Zyrtec] 10 mg PO DAILY PRN 08/16/13 [History] Lisinopril 20 mg PO DAILY 08/16/13 [History] hydroCHLOROthiazide [Hydrochlorothiazide] 25 mg PO DAILY 08/16/13 [History] Aspirin [Aspirin EC] 81 mg PO DAILY 01/25/20 [History] Calc/D3/Mag/Zn/Jayla/Jamir/[place] [Calcium 600 MG Plus Vit D] 1 tab PO BID 01/25/20 [History] Cholecalciferol (Vitamin D3) [Vitamin D] 2,000 mg PO DAILY 01/25/20 [History] Diltiazem [Tiazac] 300 mg PO DAILY 01/25/20 [History] Escitalopram [Lexapro] 10 mg PO DAILY 01/25/20 [History] Glucosamine HCl 2,000 mg PO DAILY 01/25/20 [History] Lutein/Minerals/Vit A,C & E [Ocuvite] 1 tab PO BID 01/25/20 [History] Potassium Chloride [Klor-Con 10] 10 meq PO DAILY 01/25/20 [History] Raloxifene [Evista] 60 mg PO DAILY 01/25/20 [History] rOPINIRole [Requip] 1 mg PO DAILY 01/25/20 [History] traMADol [Ultram] 50 mg PO Q8HR PRN 01/25/20 [History] Magnesium Oxide 250 mg PO BIDM #10 tablet 01/27/20 [Rx] Phosphorus #1 [Neutra-Phos] 250 mg PO BID #10 tab 01/27/20 [Rx] Phosphorus #1 [Neutra-Phos] 250 mg PO QID tablet 01/27/20 [Rx] Past Medical History HEENT History: Reports: Cataract, Macular Degeneration Cardiovascular History: Reports: Hypertension Respiratory History: Reports: None Other Respiratory History: history of two chest tubes Gastrointestinal History: Reports: None Genitourinary History: Reports: Acute Renal Failure INFRASTRUCTURE DIRECTOR History: Reports: None Musculoskeletal History: Reports: Arthritis Neurological History: Reports: None Psychiatric History: Reports: None Endocrine/Metabolic History: Reports: None Hematologic History: Reports: None Immunologic History: Reports: None Oncologic (Cancer) History: Reports: None Dermatologic History: Reports: None - Infectious Disease History Infectious Disease History: Reports: Measles - Past Surgical History Head Surgeries/Procedures: Reports: None HEENT Surgical History: Reports: Cataract Surgery Cardiovascular Surgical History: Reports: None GI Surgical History: Reports: None Female Surgical History: Reports: None Endocrine Surgical History: Reports: None Neurological Surgical History: Reports: None Musculoskeletal Surgical History: Reports: Hip Replacement Oncologic Surgical History: Reports: None Social & Family History - Family History Family Medical History: Noncontributory - Tobacco Use Smoking Status *Q: Current Every Day Smoker Tobacco Use Within Last Twelve Months: Cigarettes - Caffeine Use Caffeine Use: Reports: Soda - Living Situation & Occupation Living situation: Reports: Single, Alone Occupation: Retired Review of Systems - Review of Systems Review Of Systems: Comprehensive ROS is negative, except as noted in HPI. ED EXAM, GENERAL - Physical Exam Exam: See Below Exam Limited By: No Limitations General Appearance: Alert, No Apparent Distress, Other (Frail elderly female) Eye Exam: Bilateral Eye: Normal Inspection Nose: Normal Inspection, No Blood Throat/Mouth: Normal Inspection, Normal Lips, Normal Voice, No Airway Compromise Head: Atraumatic, Normocephalic Neck: Normal Inspection, Non-Tender, Full Range of Motion Respiratory/Chest: No Respiratory Distress, Lungs Clear, No Accessory Muscle Use, Chest Non-Tender, Decreased Breath Sounds Cardiovascular: Normal Peripheral Pulses, Regular Rate, Rhythm GI/Abdominal: Normal Bowel Sounds, Soft, Non-Tender, No Distention, Pelvis Stable Back Exam: Normal Inspection. No: CVA Tenderness (L), CVA Tenderness (R), Vertebral Tenderness Extremities: Normal Capillary Refill, Leg Pain (Pain to palpation over the right pubic rami area.), Limited Range of Motion (Rt hip due to pain.). No: Joint Swelling Neurological: Alert, Oriented, CN II-XII Intact, Normal Cognition, No Motor/Sensory Deficits Psychiatric: Normal Affect, Normal Mood Skin Exam: Warm, Dry, Intact, Normal Color, No Rash Course - Vital Signs Last Recorded V/S: Last Vital Signs Temp 99.6 F 02/10/20 07:23 Pulse 88 02/10/20 07:23 Resp 20 02/10/20 07:23 BP 134/62 02/10/20 07:23 Pulse Ox 94 L 02/10/20 07:23 - Radiology Interpretation Free Text/Narrative:: [facility] Final Radiology Report Call: [phone] assistance Online chat: [email or web address] Name: THAD DE Age: 79Years F Date: 02/10/2020 SSN: -- : 1940 Study: CT PELVIS WO CONT Requesting Physician: DIAZ MASCORRO Images: [id number] Addl Studies: Provided Clinical History: Fall, Rt hip pubic rami area pain Contrast: Without Contrast Medium: Contrast Amount: Contrast Method: Page 1 of 2 PROCEDURE INFORMATION: Exam: CT Pelvis Without Contrast; Skeletal Exam date and time: 02/10/2020 7:44 AM Age: 79 years old Clinical indication: Injury or trauma; Fall; Initial encounter; Fracture of pelvis & hip; Right; Not specified; Neck of femur, midcervical; Closed fracture; Injury date: 02/09/2020; Prior surgery; Surgery date: 6+ months; Surgery type: Left hip replacement; Additional info: Fall, RT hip pubic rami area pain TECHNIQUE: Imaging protocol: Computed tomography images of the pelvis without contrast. Exam focused on the skeletal structures. Radiation optimization: All CT scans at this facility use at least one of these dose optimization techniques: automated exposure control; mA and/or kV adjustment per patient size (includes targeted exams where dose is matched to clinical indication); or iterative reconstruction. COMPARISON: CT Abdomen Pelvis wo Cont 01/25/2020 2:09 PM FINDINGS: Stomach and bowel: Diverticulosis of the colon. Vasculature: Atherosclerotic disease. Bones/joints: Impacted subcapital right femoral fracture. Osteopenia. Status post left hip arthroplasty. Extensive beam hardening artifact from the hardware limits evaluation of adjacent structures. Degenerative disease and facet hypertrophy of the lower lumbar spine. Soft tissues: Unremarkable. IMPRESSION: Impacted subcapital right femoral fracture. KENISHATHAD | Final Radiology Report CONFIDENTIALITY STATEMENT This report is intended only for use by the referring physician, and only in accordance with law. If you received this in error, call [phone]. Page 2 of 2 Thank you for allowing us to participate in the care of your patient. Dictated and Authenticated by: Thomas Mix MD 02/10/2020 8:01 AM Central Time ([place] & [place]) Departure - Departure Time of Disposition: 08:24 Disposition: DC/Tfer to Acute Hospital 02 Condition: Good Clinical Impression: Closed right hip fracture Qualifiers: Encounter type: initial encounter Qualified Code(s): S72.001A - Fracture of u nspecified part of neck of right femur, initial encounter for closed fracture - Discharge Information *PRESCRIPTION DRUG MONITORING PROGRAM REVIEWED*: Not Applicable *COPY OF PRESCRIPTION DRUG MONITORING REPORT IN PATIENT JULIET: Not Applicable Forms: ED Department Discharge, Interfacility Transfer EMTALA Sepsis Event Note (ED) - Evaluation Sepsis Screening Result: No Definite Risk - Focused Exam Vital Signs: Vital Signs Temp Pulse Resp BP Pulse Ox 02/10/20 07:23 99.6 F 88 20 134/62 94 L"
--- NOTE | 2020-02-10 08:01 | CT ---
PROCEDURE INFORMATION: Exam: CT Pelvis Without Contrast; Skeletal Exam date and time: 02/10/2020 7:44 AM Age: 79 years old Clinical indication: Injury or trauma; Fall; Initial encounter; Fracture of pelvis & hip; Right; Not specified; Neck of femur, midcervical; Closed fracture; Injury date: 02/09/2020; Prior surgery; Surgery date: 6+ months; Surgery type: Left hip replacement; Additional info: Fall, RT hip pubic rami area pain TECHNIQUE: Imaging protocol: Computed tomography images of the pelvis without contrast. Exam focused on the skeletal structures. Radiation optimization: All CT scans at this facility use at least one of these dose optimization techniques: automated exposure control; mA and/or kV adjustment per patient size (includes targeted exams where dose is matched to clinical indication); or iterative reconstruction. COMPARISON: CT Abdomen Pelvis wo Cont 01/25/2020 2:09 PM FINDINGS: Stomach and bowel: Diverticulosis of the colon. Vasculature: Atherosclerotic disease. Bones/joints: Impacted subcapital right femoral fracture. Osteopenia. Status post left hip arthroplasty. Extensive beam hardening artifact from the hardware limits evaluation of adjacent structures. Degenerative disease and facet hypertrophy of the lower lumbar spine. Soft tissues: Unremarkable. IMPRESSION: Impacted subcapital right femoral fracture.
== END 2020-02-10 09:05 ==
LOC: DL.ED 07:23
DX: S72.011A Unspecified intracapsular fracture of right femur, initial encounter for closed fracture (principal); M19.90 Unspecified osteoarthritis, unspecified site; F17.210 Nicotine dependence, cigarettes, uncomplicated; I10 Essential (primary) hypertension; Z79.82 Long term (current) use of aspirin; Z79.899 Other long term (current) drug therapy; W19.XXXA Unspecified fall, initial encounter
CPT/HCPCS: 72192; 99284; 99285-25

== ENCOUNTER 2020-08-18 04:50 | Emergency (ER) | payer MEDICARE, OTHER ==
[2020-08-18 05:43] LABS: ANION GAP 13.5 mEq/L (7-13); CHLORIDE,CL 105 mmol/L (98-107); SODIUM,NA 141 mmol/L (136-145)
--- NOTE | 2020-08-18 05:50 | EDM.PDOC ---
ED HPI GENERAL MEDICAL PROBLEM - General Source of Information: Reports: Patient, Family, RN, RN Notes Reviewed History Limitations: Reports: No Limitations - History of Present Illness Onset: Today, Sudden Treatments ELECTROTYPE MOLDER: Reports: Dressing(s) <Stefany Muhammad - Last Filed: 08/18/20 06:42> <Arturo Edwardsian - Last Filed: 08/18/20 07:40> - General Chief Complaint: Head Injury Stated Complaint: FELL AND HIT HER HEAD ALIL CONFUSION Time Seen by Provider: 08/18/20 05:30 - History of Present Illness INITIAL COMMENTS - FREE TEXT/NARRATIVE: Patient is an 79 year old female who presents to ER with her sister with c/o head injury. Patient states she was up in the middle of the night looking for her . She states she does not remember falling or hitting her head. Patient's sister states the has been for 5 years. Patient has lymph edema of the lower legs bilaterally. Sister states there is a wound to the left lower leg that is healing. She just saw wound care on telemedicine. She has been having dressing changes to the left leg three times weekly. Patient states she had stents placed to the left leg "last fall". She is currently on Plavix. Patient states she gets up to the bathroom 3-4 times during the night. She denies any urgency or burning with urination. Incidental finding of pulsation and abnormal bruit to the abdomen. Looking back at past visits, this was not found. Patient also had a abdomen/pelvis CT in January 2020 in which an AAA was not found. Patient is alert and oriented to person, place, and date. She does state at this time she knows that her is . (Stefany Muhammad) - Related Data Allergies Allergy/AdvReac Type Severity Reaction Status Date / Time prednisone AdvReac Severe bilateral Verified 06/13/20 07:42 arm and shoulder pain Home Meds: Home Meds ALPRAZolam [Xanax] 0.5 mg PO QID PRN 06/13/20 [History] Acetaminophen [Tylenol Extra Strength] 500 mg PO Q6H PRN 06/13/20 [History] Aspirin [Halfprin] 81 mg PO DAILY 06/13/20 [History] Biotin 1,000 mcg PO DAILY 06/13/20 [History] Calcium Phosphate 1 tab PO DAILY 06/13/20 [History] Cetirizine [ZyrTEC] 10 mg PO DAILY 06/13/20 [History] Cholecalciferol (Vitamin D3) [Vitamin D3] 2,000 unit PO DAILY 06/13/20 [History] Clopidogrel Bisulfate [Plavix] 75 mg PO DAILY 06/13/20 [History] Cyanocobalamin (Vitamin B12) [Vitamin B13] 500 mcg PO DAILY 06/13/20 [History] Escitalopram Oxalate [Lexapro] 10 mg PO DAILY 06/13/20 [History] Ferrous Sulfate 324 mg PO WITHBREAKFAST 06/13/20 [History] Furosemide [Lasix] 20 mg PO DAILY 06/13/20 [History] Glucosamine [Glucosamine Sulfate] 1,000 mg PO DAILY 06/13/20 [History] Lidocaine 4% Top Soln LTA [LTA 360 Kit Top Soln] 1 applic TOP Q4H PRN 06/13/20 [History] Pantoprazole Sodium [Protonix] 40 mg PO DAILY 06/13/20 [History] Potassium Chloride [Klor-Con] 20 meq PO DAILY 06/13/20 [History] Raloxifene [Evista] 60 mg PO DAILY 06/13/20 [History] Vit A/Vit C/Vit E/Zinc/Copper [Preservision Areds Softgel] 1 cap PO DAILY 06/13/20 [History] rOPINIRole [Requip] 0.5 mg PO DAILY 06/13/20 [History] traMADol [Ultram] 50 mg PO Q4H PRN 06/13/20 [History] Past Medical History HEENT History: Reports: Cataract, Macular Degeneration Cardiovascular History: Reports: Hypertension Respiratory History: Reports: None Other Respiratory History: history of two chest tubes Gastrointestinal History: Reports: None Genitourinary History: Reports: Acute Renal Failure DATA COLLECTION ASSOCIATE History: Reports: None Musculoskeletal History: Reports: Arthritis Neurological History: Reports: None Psychiatric History: Reports: None Endocrine/Metabolic History: Reports: None Hematologic History: Reports: None Immunologic History: Reports: None Oncologic (Cancer) History: Reports: None Dermatologic History: Reports: None - Infectious Disease History Infectious Disease History: Reports: Measles - Past Surgical History Head Surgeries/Procedures: Reports: None HEENT Surgical History: Reports: Cataract Surgery Cardiovascular Surgical History: Reports: None GI Surgical History: Reports: None Female Surgical History: Reports: None Endocrine Surgical History: Reports: None Neurological Surgical History: Reports: None Musculoskeletal Surgical History: Reports: Hip Replacement Oncologic Surgical History: Reports: None <Stefany Muhammad - Last Filed: 08/18/20 06:42> Social & Family History - Family History Family Medical History: No Pertinent Family History - Caffeine Use Caffeine Use: Reports: Soda - Living Situation & Occupation Living situation: Reports: Single, Alone Occupation: Retired <Stefany Muhammad - Last Filed: 08/18/20 06:42> ED ROS GENERAL - Review of Systems Review Of Systems: Comprehensive ROS is negative, except as noted in HPI. <Stefany Muhammad Last Filed: 08/18/20 06:42> ED EXAM, HEAD INJURY - Physical Exam Exam: See Below Exam Limited By: Other (forgetful) General Appearance: Alert, No Apparent Distress Head: Scalp Lacerations (left occiputal), Scalp Hematoma, Scalp Tenderness. No: Active Bleeding Nexus Criteria: No: Posterior, Midline Cervical Tenderness, Evidence of Intoxication, Altered Level of Consciousness, Focal Neurological Deficit, Painful Distraction Injuries Eyes: Bilateral Eye: EOMI, Normal Inspection, PERRL (2, sluggish) Ears: Normal External Exam, Normal Canal, Hearing Grossly Normal, Normal TMs Nose: Normal Inspection Throat/Mouth: Normal Inspection, Normal Voice, No Airway Compromise Neck: Non-Tender, Full Range of Motion, Normal Alignment, Normal Inspection Respiratory: No Respiratory Distress, Lungs Clear, Normal Breath Sounds, No Accessory Muscle Use, Chest Non-Tender Cardiovascular: Normal Peripheral Pulses, Regular Rate, Rhythm, No Edema, No Gallop GI/Abdominal Exam: Other (abnormal abdominal bruit) (Female) Exam: Deferred Rectal (Female) Exam: Deferred Back Exam: Normal Inspection, Decreased Range of Motion Extremities: Pedal Edema, Limited Range of Motion, Other (left leg wrapped, lymphedema bilaterally, ) Neurologic: oil program compliance specialist II-XII nml As Tested, No Motor/Sensory Deficits, Alert, Normal Mood/Affect, Oriented x 3 Skin: Normal Color, Warm/Dry - [place] Coma Score Best Eye Response ([place]): (4) Open Spontaneously Best Verbal Response ([place]): (5) Oriented Best Motor Response ([place]): (6) Obeys Commands Kot[place] Total: 15 <Stefany Muhammad - Last Filed: 08/18/20 06:42> - Physical Exam Exam: See Below Exam Limited By: No Limitations General Appearance: Alert, No Apparent Distress, Thin Head: Scalp Hematoma Nexus Criteria: No: Posterior, Midline Cervical Tenderness, Evidence of Intoxication, Altered Level of Consciousness, Focal Neurological Deficit, Painful Distraction Injuries Eyes: Bilateral Eye: EOMI, Normal Inspection, PERRL Ears: Normal External Exam, Normal Canal, Hearing Grossly Normal, Normal TMs Nose: Normal Inspection, Normal Mucousa, No Blood Throat/Mouth: Normal Inspection, Normal Lips, Normal Oropharynx, Normal Voice, No Airway Compromise Neck: Non-Tender, Full Range of Motion, Normal Alignment, Normal Inspection. No: Tenderness Respiratory: No Respiratory Distress, Lungs Clear, Normal Breath Sounds, No Accessory Muscle Use, Chest Non-Tender Cardiovascular: Normal Peripheral Pulses, Regular Rate, Rhythm, No Gallop, No JVD, No Rub GI/Abdominal Exam: Normal Bowel Sounds, Soft, Non-Tender Back Exam: Normal Inspection Extremities: Pedal Edema, Arm Pain (Left elbow contusion), Other Neurologic: oil program compliance specialist II-XII nml As Tested, No Motor/Sensory Deficits, Alert, Normal Mood/Affect, Oriented x 3, Other (GCS 15 at 0700HRS and at discharge.) <Arturo Edwards - Last Filed: 08/18/20 07:40> Course <Stefany Muhammad - Last Filed: 08/18/20 06:42> <Arturo Edwards - Last Filed: 08/18/20 07:40> - Vital Signs Last Recorded V/S: See paper trauma chart for VS, reviewed by me. (Arturo Edwards) - Orders/Labs/Meds Orders: Active Orders 24 hr Category Date Time Status Abdomen Pelvis w Cont [CT] Urgent Exams 08/18/20 06:40 Stop Req Ang Abdomen Aorta w Bi Runoff [CT] Urgent Exams 08/18/20 06:55 Ordered Labs: Laboratory Tests 08/18/20 08/18/20 08/18/20 Range/Units 05:15 05:15 05:15 WBC 8.6 (5.0-10.0) 10^3/uL RBC 3.19 L (4.2-5.4) 10^6/uL Hgb 9.9 L D (12.0-16.0) g/dL Hct 31.8 L (37.0-47.0) % MCV 99.7 D (80-100) fL MCH 31.0 (27.0-34.0) pg MCHC 31.1 L (33.0-35.0) g/dL Plt Count 228 (150-450) 10^3/uL Neut % (Auto) 82.0 H (42.2-75.2) % Lymph % (Auto) 6.9 L (20.5-50.1) % Henry % (Auto) 10.5 H (2-8) % Eos % (Auto) 0.5 L (1.0-3.0) % Baso % (Auto) 0.1 (0.0-1.0) % PT 10.6 (9.0-12.0) SEC INR 1.1 (0.9-1.2) Sodium 141 (136-145) mmol/L Potassium 3.5 (3.5-5.1) mmol/L Chloride 105 (98-107) mmol/L Carbon Dioxide 26 (21-32) mmol/L Anion Gap 13.5 H (7-13) mEq/L BUN 30 H (7-18) mg/dL Creatinine 0.68 (0.55-1.02) mg/dL Est Cr Clr Drug Dosing TNP Estimated GFR (MDRD) > 60 BUN/Creatinine Ratio 44.1 (No establ ref range) Glucose 110 H (74-99) mg/dL Calcium 8.7 (8.5-10.1) mg/dL Total Bilirubin 0.2 (0.2-1.0) mg/dL AST 24 (15-37) U/L ALT 18 (14-59) U/L Alkaline Phosphatase 95 (46-116) U/L Total Protein 6.5 (6.4-8.2) g/dL Albumin 3.1 L (3.4-5.0) g/dL Globulin 3.4 Albumin/Globulin Ratio 0.91 Urine Color (YELLOW) Urine Appearance (CLEAR) Urine pH (5.0-9.0) Ur Specific [place] (1.005-1.030) Urine Protein (NEGATIVE) Urine Glucose (UA) (NEGATIVE) Urine Ketones (NEGATIVE) Urine Occult Blood (NEGATIVE) Urine Nitrite (NEGATIVE) Urine Bilirubin (NEGATIVE) Urine Urobilinogen (0.2-1.0) mg/dL Ur Leukocyte Esterase (NEGATIVE) U Hyaline Cast (Auto) Urine RBC /HPF Urine WBC (0-5/HPF) /HPF Ur Epithelial Cells (NOT SEEN) /HPF Urine Bacteria (0-FEW/HPF) /HPF Urine Mucus (NOT SEEN) /LPF Urinalysis Comment 08/18/20 Range/Units 05:55 WBC (5.0-10.0) 10^3/uL RBC (4.2-5.4) 10^6/uL Hgb (12.0-16.0) g/dL Hct (37.0-47.0) % MCV (80-100) fL MCH (27.0-34.0) pg MCHC (33.0-35.0) g/dL Plt Count (150-450) 10^3/uL Neut % (Auto) (42.2-75.2) % Lymph % (Auto) (20.5-50.1) % Henry % (Auto) (2-8) % Eos % (Auto) (1.0-3.0) % Baso % (Auto) (0.0-1.0) % PT (9.0-12.0) SEC INR (0.9-1.2) Sodium (136-145) mmol/L Potassium (3.5-5.1) mmol/L Chloride (98-107) mmol/L Carbon Dioxide (21-32) mmol/L Anion Gap (7-13) mEq/L BUN (7-18) mg/dL Creatinine (0.55-1.02) mg/dL Est Cr Clr Drug Dosing Estimated GFR (MDRD) BUN/Creatinine Ratio (No establ ref range) Glucose (74-99) mg/dL Calcium (8.5-10.1) mg/dL Total Bilirubin (0.2-1.0) mg/dL AST (15-37) U/L ALT (14-59) U/L Alkaline Phosphatase (46-116) U/L Total Protein (6.4-8.2) g/dL Albumin (3.4-5.0) g/dL Globulin Albumin/Globulin Ratio Urine Color Yellow (YELLOW) Urine Appearance Cloudy (CLEAR) Urine pH 5.5 (5.0-9.0) Ur Specific [place] 1.025 (1.005-1.030) Urine Protein 30 H (NEGATIVE) Urine Glucose (UA) Negative (NEGATIVE) Urine Ketones Negative (NEGATIVE) Urine Occult Blood Negative (NEGATIVE) Urine Nitrite Negative (NEGATIVE) Urine Bilirubin Negative (NEGATIVE) Urine Urobilinogen 0.2 (0.2-1.0) mg/dL Ur Leukocyte Esterase Trace H (NEGATIVE) U Hyaline Cast (Auto) Moderate Urine RBC 0-5 /HPF Urine WBC 5-10 H (0-5/HPF) /HPF Ur Epithelial Cells Many H (NOT SEEN) /HPF Urine Bacteria Few (0-FEW/HPF) /HPF Urine Mucus Moderate H (NOT SEEN) /LPF Urinalysis Comment See note Meds: Medications Discontinued Medications Generic Name Dose Route Start Last Admin Trade Name Freq PRN Reason Stop Dose Admin Iopamidol 100 ml 08/18/20 06:55 08/18/20 07:25 Isovue-370 (76%) IVPUSH 08/18/20 06:56 100 ml ONETIME ONE Administration - Radiology Interpretation Free Text/Narrative:: Head CT: Age related changes No acute findings left scalp hematoma See rad report Left elbow xray: No acute findings See rad report (Stefany Muhammad) - Re-Assessments/Exams Free Text/Narrative Re-Assessment/Exam: 08/18/20 07:00 I assumed care of the pt from Stefany Muhammad COOK SHORT ORDER at shift change with pt's trauma evaluation complete and awaiting CT Angio Abd/Pelvis AAA study due to incidental finding of abdominal bruit. Stefany reports pt's C-spine was cleared by Hx and exam. (Arturo Edwards) Departure <Stefany Muhammad - Last Filed: 08/18/20 06:42> - Departure Time of Disposition: 07:39 Condition: Good - Discharge Information *PRESCRIPTION DRUG MONITORING PROGRAM REVIEWED*: Not Applicable *COPY OF PRESCRIPTION DRUG MONITORING REPORT IN PATIENT JULIET: Not Applicable <Arturo Edwards - Last Filed: 08/18/20 07:40> - Departure Disposition: Home, Self-Care 01 Clinical Impression: Contusion of left elbow, initial encounter Traumatic hematoma of scalp Qualifiers: Encounter type: initial encounter Qualified Code(s): S00.03XA - Contusion of scalp, initial encounter Fall as cause of accidental injury at home as place of occurrence Qualifiers: Encounter type: initial encounter Qualified Code(s): W19.XXXA - Unspecified fall, initial encounter; Y92.009 - Unspecified place in unspecified non- institutional (private) residence as the place of occurrence of the external cause - Discharge Information Instructions: Hematoma, [id number], Elbow Contusion, [id number] Forms: ED Department Discharge Additional Instructions: Follow up in clinic with your primary doctor next week.
--- NOTE | 2020-08-18 05:50 | CT ---
PROCEDURE INFORMATION: Exam: CT Head Without Contrast Exam date and time: 08/18/2020 5:17 AM Age: 79 years old Clinical indication: Injury or trauma; Fall; Blunt trauma (contusions or hematomas); Additional info: Head injury, on plavix TECHNIQUE: Imaging protocol: Computed tomography of the head without contrast. Radiation optimization: All CT scans at this facility use at least one of these dose optimization techniques: automated exposure control; mA and/or kV adjustment per patient size (includes targeted exams where dose is matched to clinical indication); or iterative reconstruction. COMPARISON: 1. CT Head wo Cont 06/13/2020 8:09 AM 2. (No prior similar studies are available for comparison.) FINDINGS: Periventricular white matter low attenuation consistent with chronic small vessel disease. There is no mass lesion or mass effect. There is diffuse central and cortical atrophy consistent with age. There is no CT evidence of acute parenchymal ischemia. There is no intra-axial or extra-axial hemorrhage. There is no evidence of acute obstructive sinonasal disease. Mastoid air cells are grossly normal. Visualized osseous structures are normal. Other findings: EXAM TYPE: CT of the BRAIN; DATE AND TIME: 08/18/2020 5:17 AM; CLINICAL INFORMATION:; Injury or trauma; Fall; Blunt trauma (contusions or hematomas); Additional info: Head injury, on plavix IMPRESSION: 1. Small left scalp hematoma. 2. Central and cortical atrophy consistent with age. 3. No CT evidence of acute infarction, intracranial hemorrhage or mass.
--- NOTE | 2020-08-18 05:51 | CR ---
PROCEDURE INFORMATION: Exam: XR Left Elbow Exam date and time: 08/18/2020 5:14 AM Age: 79 years old Clinical indication: Injury or trauma; Fall; Blunt trauma (contusions or hematomas); Elbow; Left; Additional info: Fall with skin tear TECHNIQUE: Imaging protocol: XR Left elbow. Views: 1 or 2 views. COMPARISON: No relevant prior studies available. FINDINGS: Bones/joints: Mild osteoarthritis of the elbow joint but no acute fracture or dislocation. Soft tissues: Normal. IMPRESSION: Mild osteoarthritis of the elbow joint but no acute fracture or dislocation.
[2020-08-18] MEDS ORDERED: Iopamidol 755 Mg/ML 100 ML Bottle IVPUSH ONE (06:55)
--- NOTE | 2020-08-18 13:06 | CT ---
PROCEDURE INFORMATION: Exam: CT Abdomen And Pelvis With Contrast Exam date and time: 08/18/2020 6:57 AM Age: 79 years old Clinical indication: Other: Abnormal bruit to abdomen; Additional info: Abdominal bruit TECHNIQUE: Imaging protocol: Computed tomography of the abdomen and pelvis with contrast. Radiation optimization: All CT scans at this facility use at least one of these dose optimization techniques: automated exposure control; mA and/or kV adjustment per patient size (includes targeted exams where dose is matched to clinical indication); or iterative reconstruction. Contrast material: ISOVUE 370; Contrast volume: 75 ml; Contrast route: INTRAVENOUS (IV); COMPARISON: CT Abdomen Pelvis wo Cont 01/25/2020 2:09:[address] Chest w Cont 08/16/2013 2:39:29 PM FINDINGS: Lungs: There are two right lower lobe nodules, largest approximately 1 cm. Smaller 4 mm nodule. Basilar atelectasis or scar. Liver: No mass. Gallbladder and bile ducts: Unremarkable. No ductal dilation. No wall calcification. Pancreas: Normal. No ductal dilation. Spleen: Normal. No splenomegaly. Adrenal glands: Normal. No mass. Kidneys and ureters: Pelvic right kidney, no hydronephrosis of either kidney, no mass. Stomach and bowel: No acute findings. No obstruction. No mucosal thickening. Appendix: No evidence of appendicitis. Intraperitoneal space: No free fluid or pneumoperitoneum. Stable densely calcified lesion in the midline estimated at 12 mm, unchanged. The calcification is of uncertain etiology, possible dense lymph node calcification, but benign. Vasculature: No abdominal aortic aneurysm. Lymph nodes: No significant adenopathy. Urinary bladder: Unremarkable as visualized. Reproductive: Unremarkable as visualized. Bones/joints: Bilateral hip replacements, metallic artifact. Soft tissues: Unremarkable. IMPRESSION: No acute abdominal findings. Right lower lung nodules, the largest, approximately 1 cm is suspicious for malignancy. Consider follow-up chest CT or PET/CT.
== END 2020-08-18 07:50 | disposition home or self-care (01) ==
LOC: DL.ED 04:50
DX: S00.03XA Contusion of scalp, initial encounter (principal); S50.02XA Contusion of left elbow, initial encounter; I10 Essential (primary) hypertension; M19.90 Unspecified osteoarthritis, unspecified site; Z88.8 Allergy status to other drugs, medicaments and biological substances; Z79.82 Long term (current) use of aspirin; Z79.02 Long term (current) use of antithrombotics/antiplatelets; W19.XXXA Unspecified fall, initial encounter; Y92.009 Unspecified place in unspecified non-institutional (private) residence as the place of occurrence of the external cause
CPT/HCPCS: 36415; 70450; 73070; 74174; 75635; 80053; 81001; 85025; 85610; 99284; Q9967; 74177

== ENCOUNTER 2020-08-22 07:58 | Emergency (ER) | payer MEDICARE, OTHER ==
--- NOTE | 2020-08-22 08:43 | EDM.PDOC ---
ED [facility] GENERAL MEDICAL PROBLEM - General Chief Complaint: Trauma Stated Complaint: PT FELL Time Seen by Provider: 08/22/20 08:06 Source of Information: Reports: Patient, Old Records, RN, RN Notes Reviewed, Other (Neighbor) History Limitations: Reports: Altered Mental Status (Plesantly confused) - History of Present Illness INITIAL COMMENTS - FREE TEXT/NARRATIVE: Patient presents to the ED via personal vehicle with neighbor with complaints of fall. The patient states she does not remember falling, and does not actually believe she fell, but the neighbor states she was found on her kitchen floor by her sister. The patient states she is on blood thinners following a Fem-Pop bypass in June 26. The patient lives alone in a private single-family home; she has sustained multiple falls in the past six months. She denies pain to bilateral upper extremities and left lower extremity. She states pain to her right lateral hip with bruising noted to the area. She does report a right hip replacement in February 2020; incision is healed. Trauma Notes: As above in HPI Arrival Time: 805 C-Collar Status: Applied by staff at 0807 as patient is confused and does not remember falling Spinal Board/Immobilization Status: No applied GCS on Arrival: 13 Primary Trauma Survey (0807 hrs) Airway: Patent nasal and oral airways. Breathing: Spontaneous respirations with clear bilateral breath sounds. Circulation: Heart rate and rhythm regular. Intact distal pulses to all four extremities. Lymphedema wrap in place to left lower extremity. +3 pitting edema, bilaterally. Deformity/Disability: No active bleeding. No long bone deformities. Old surgical incision to right, lateral hip; Large hematoma noted. Ecchymosis to diffuse to left orbit and medial right orbit. Small hematoma to right, lateral scalp. Alert, but pleasantly confused. Abdomen benign to exam. Exposure: Skin cool and dry. - Related Data Allergies Allergy/AdvReac Type Severity Reaction Status Date / Time prednisone AdvReac Severe bilateral Verified 08/22/20 08:16 arm and shoulder pain Home Meds: Home Meds ALPRAZolam [Xanax] 0.5 mg PO QID PRN 06/13/20 [History] Acetaminophen [Tylenol Extra Strength] 500 mg PO Q6H PRN 06/13/20 [History] Aspirin [Halfprin] 81 mg PO DAILY 06/13/20 [History] Biotin 1,000 mcg PO DAILY 06/13/20 [History] Calcium Phosphate 1 tab PO DAILY 06/13/20 [History] Cetirizine [ZyrTEC] 10 mg PO DAILY 06/13/20 [History] Cholecalciferol (Vitamin D3) [Vitamin D3] 2,000 unit PO DAILY 06/13/20 [History] Clopidogrel Bisulfate [Plavix] 75 mg PO DAILY 06/13/20 [History] Cyanocobalamin (Vitamin B12) [Vitamin B13] 500 mcg PO DAILY 06/13/20 [History] Escitalopram Oxalate [Lexapro] 10 mg PO DAILY 06/13/20 [History] Ferrous Sulfate 324 mg PO WITHBREAKFAST 06/13/20 [History] Furosemide [Lasix] 20 mg PO DAILY 06/13/20 [History] Glucosamine [Glucosamine Sulfate] 1,000 mg PO DAILY 06/13/20 [History] Lidocaine 4% Top Soln LTA [LTA 360 Kit Top Soln] 1 applic TOP Q4H PRN 06/13/20 [History] Pantoprazole Sodium [Protonix] 40 mg PO DAILY 06/13/20 [History] Potassium Chloride [Klor-Con] 20 meq PO DAILY 06/13/20 [History] Raloxifene [Evista] 60 mg PO DAILY 06/13/20 [History] Vit A/Vit C/Vit E/Zinc/Copper [Preservision Areds Softgel] 1 cap PO DAILY 06/13/20 [History] rOPINIRole [Requip] 0.5 mg PO DAILY 06/13/20 [History] traMADol [Ultram] 50 mg PO Q4H PRN 06/13/20 [History] Past Medical History HEENT History: Reports: Cataract, Macular Degeneration Cardiovascular History: Reports: Hypertension Respiratory History: Reports: None Other Respiratory History: history of two chest tubes Gastrointestinal History: Reports: None Genitourinary History: Reports: Acute Renal Failure HAND SHAKER History: Reports: None Musculoskeletal History: Reports: Arthritis Neurological History: Reports: None Psychiatric History: Reports: None Endocrine/Metabolic History: Reports: None Hematologic History: Reports: None Immunologic History: Reports: None Oncologic (Cancer) History: Reports: None Dermatologic History: Reports: None - Infectious Disease History Infectious Disease History: Reports: Measles - Past Surgical History Head Surgeries/Procedures: Reports: None HEENT Surgical History: Reports: Cataract Surgery Cardiovascular Surgical History: Reports: None GI Surgical History: Reports: None Female Surgical History: Reports: None Endocrine Surgical History: Reports: None Neurological Surgical History: Reports: None Musculoskeletal Surgical History: Reports: Hip Replacement Oncologic Surgical History: Reports: None Social & Family History - Family History Family Medical History: No Pertinent Family History - Tobacco Use Tobacco Use Status *Q: Current Every Day Tobacco User Years of Tobacco use: 70 Packs/Tins Daily: 1 - Caffeine Use Caffeine Use: Reports: Soda - Recreational Drug Use Recreational Drug Use: No - Living Situation & Occupation Living situation: Reports: Single, Alone Occupation: Retired Review of Systems - Review of Systems Review Of Systems: Comprehensive ROS is negative, except as noted in HPI. ED EXAM, GENERAL - Physical Exam Exam: See Below Free Text/Narrative:: Secondary Trauma Survey as follows: (814) Exam Limited By: Altered Mental Status General Appearance: Alert, Thin Eye Exam: Bilateral Eye: EOMI, Normal Inspection, Periorbital Changes (Bruising surrounding orbit on the L - Fall on 08/18/20; Ecchymosis to R medial orbit), PERRL (2mm) Ears: Normal External Exam, Normal Canal, Hearing Grossly Normal, Normal TMs Ear Exam: Bilateral Ear: Auricle Normal, Canal Normal, TM normal Nose: Nasal Tenderness, Nasal Deformity (Ecchymosis to bridge of nose), Nasal Swelling. No: Nasal Drainage Throat/Mouth: Normal Inspection, Normal Voice, No Airway Compromise Head: Normocephalic, Facial Swelling, Facial Tenderness, Other (Small hematoma to right lateral scalp) Neck: Normal Inspection, Supple, Non-Tender, Full Range of Motion, Other (C- Collar placed at 0807 by ED staff; C-Spine cleared at 0931 by web content writer based on physical exam and imaging; C-Collar removed at 0931 by web content writer). No: Tender Lateral, Tender Midline Respiratory/Chest: No Respiratory Distress, Lungs Clear, Normal Breath Sounds, No Accessory Muscle Use, Chest Non-Tender Cardiovascular: Normal Peripheral Pulses, Regular Rate, Rhythm, No Gallop, No JVD, No Murmur, No Rub Peripheral Pulses: 2+: Radial (L), Radial (R), Dorsalis Pedis (L), Dorsalis Pedis (R) GI/Abdominal: Normal Bowel Sounds, Soft, Non-Tender, No Distention, No Abnormal Bruit, No Mass, Pelvis Stable (Female) Exam: Deferred Rectal (Female) Exam: Deferred Back Exam: Normal Inspection, Decreased Range of Motion (Kyphosis). No: Paraspinal Tenderness, Vertebral Tenderness Extremities: Non-Tender, Normal Capillary Refill, Pedal Edema (+3 pitting, bilaterally; Lymphedema wraps in place to LLE). No: Arm Pain, Leg Pain, Increased Warmth, Mottled, Pallor, Redness Neurological: Alert, Normal Gait (Patient uses a walker for ambulation), Confused, Disoriented (Oriented to self and place only; Disoriented to time and situation) Psychiatric: Normal Affect, Normal Mood Skin Exam: Warm, Dry, Normal Color, No Rash, Ecchymosis (To right lateral hip), Wound/Incision (Superficial skin tear to midline back). No: Erythema, Increased Warmth, Jaundice, Mottled, Pallor, Petechiae, Rash Lymphatic: No Adenopathy #1 Interpretation EKG Date: 08/22/20 Time: 08:42 Rhythm: NSR Rate (Beats/Min): 72 [place]: Normal P-Wave: Present QRS: Normal ST-T: Normal QT: Normal Comparison: No Change EKG Interpretation Comments: NSR; No evidence of acute myocardial ischemia Course - Vital Signs Last Recorded V/S: Last Vital Signs Temp 97.9 F 08/22/20 08:16 Pulse 74 08/22/20 09:04 Resp 12 08/22/20 09:04 BP 144/59 H 08/22/20 09:04 Pulse Ox 98 08/22/20 09:15 - Orders/Labs/Meds Orders: Active Orders 24 hr Category Date Time Status EKG Documentation Completion [RC] STAT Care 08/22/20 08:34 Active DRUG SCREEN URINE BIORAD [URCHEM] Urgent Lab 08/22/20 08:11 Ordered UA RFX RAMBO AND CULT IF INDIC [URIN] Stat Lab 08/22/20 08:11 Ordered Labs: Laboratory Tests 08/22/20 08/22/20 08/22/20 Range/Units 08:21 08:21 08:21 WBC 8.9 (5.0-10.0) 10^3/uL RBC 2.96 L (4.2-5.4) 10^6/uL Hgb 9.2 L (12.0-16.0) g/dL Hct 29.4 L (37.0-47.0) % MCV 99.3 (80-100) fL MCH 31.1 (27.0-34.0) pg MCHC 31.3 L (33.0-35.0) g/dL Plt Count 265 (150-450) 10^3/uL Neut % (Auto) 81.3 H (42.2-75.2) % Lymph % (Auto) 7.1 L (20.5-50.1) % [place] % (Auto) 11.3 H (2-8) % Eos % (Auto) 0.1 L (1.0-3.0) % Baso % (Auto) 0.2 (0.0-1.0) % PT 10.3 (9.0-12.0) SEC INR 1.1 (0.9-1.2) APTT 22.3 (22.0-34.0) SEC Fibrinogen 321 (200-400) mg/dL Sodium 140 (136-145) mmol/L Potassium 3.3 L (3.5-5.1) mmol/L Chloride 104 (98-107) mmol/L Carbon Dioxide 28 (21-32) mmol/L Anion Gap 11.3 (7-13) mEq/L BUN 24 H (7-18) mg/dL Creatinine 0.65 (0.55-1.02) mg/dL Est Cr Clr Drug Dosing 48.61 mL/min Estimated GFR (MDRD) > 60 BUN/Creatinine Ratio 36.9 (No establ ref range) Glucose 118 H (74-99) mg/dL Calcium 8.4 L (8.5-10.1) mg/dL Total Bilirubin 0.7 (0.2-1.0) mg/dL AST 51 H (15-37) U/L ALT 37 (14-59) U/L Alkaline Phosphatase 89 (46-116) U/L Troponin I < 0.017 (0.000-0.056) ng/mL Total Protein 6.7 (6.4-8.2) g/dL Albumin 3.2 L (3.4-5.0) g/dL Globulin 3.5 Albumin/Globulin Ratio 0.91 Ethyl Alcohol < 3 (0) mg/dL - Radiology Interpretation Free Text/Narrative:: [facility] Final Radiology Report Call: [phone] assistance Online chat: [email or web address] Name: THAD DE Age: 79Years F Date: 08/22/2020 SSN: -- : 1940 Study: CT HEAD WO CONT Requesting Physician: Elsie Garcia Images: [id number] Addl Studies: Provided Clinical History: Trauama; Fall at home, patient confused Contrast: Without Contrast Medium: Contrast Amount: Contrast Method: Page 1 of 2 PROCEDURE INFORMATION: Exam: CT Head Without Contrast Exam date and time: 08/22/2020 8:50 AM Age: 79 years old Clinical indication: Injury or trauma; Blunt trauma (contusions or hematomas); Patient HX: Fall, on blood thinners. ; Additional info: Trauama; Fall at home, patient confused TECHNIQUE: Imaging protocol: Computed tomography of the head without contrast. Radiation optimization: All CT scans at this facility use at least one of these dose optimization techniques: automated exposure control; mA and/or kV adjustment per patient size (includes targeted exams where dose is matched to clinical indication); or iterative reconstructi on. COMPARISON: CT Head wo Cont 08/18/2020 5:17 AM FINDINGS: Brain: Stable central and cortical moderate to severe atrophy and small vessel i schemic disease is noted. There is now a small area of intracranial hemorrhage involving the right posterior temporoparietal lobe. Cerebral ventricles: No ventriculomegaly. Bones/joints: Unremarkable. No acute fracture. Paranasal sinuses: Visualized sinuses are unremarkable. No fluid levels. Mastoid air cells: Visualized mastoid air cells are well aerated. Soft tissues: The left scalp hematoma is slightly smaller. IMPRESSION: There is now a small focus of hemorrhage measuring 5 x 3 mm involving the right posterior temporal/parietal lobe. [facility] Final Radiology Report Call: [phone] assistance Online chat: [email or web address] Name: THAD DE Age: 79Years F Date: 08/22/2020 SSN: -- : 1940 Study: CT CERVICAL SPINE WO CONT Requesting Physician: Elsie Garcia Images: [id number] Addl Studies: Provided Clinical History: Trauama; Fall at home, patient confused Contrast: Without Contrast Medium: Contrast Amount: Contrast Method: Page 1 of 2 PROCEDURE INFORMATION: Exam: CT Cervical Spine Without Contrast Exam date and time: 08/22/2020 8:50 AM Age: 79 years old Clinical indication: Other: Trauama; Fall at home, patient confused TECHNIQUE: Imaging protocol: Computed tomography images of the cervical spine without contrast. Radiation optimization: All CT scans at this facility use at least one of these dose optimization techniques: automated exposure control; mA and/or kV adjustment per patient size (includes targeted exams where dose is matched to clinical indication); or iterative reconstruction. COMPARISON: No relevant prior studies available. FINDINGS: Bones/joints: No acute fracture. Normal alignment. Discs/Spinal canal/Neural foramina: C2/3: No acute abnormality. C3/4: No acute abnormality. C4/5: No acute abnormality. C5/6: Degenerative disc disease. No protrusion, extrusion, stenosis or foraminal narrowing. C6/7: Mild posterior spurring and degenerative disc disease without disc protrusion, extrusion, foraminal narrowing or stenosis. C7/T1: No acute abnormality. Lungs: Biapical pleural thickening. Findings of emphysema. Possible small bilateral effusions. Soft tissues: Unremarkable. IMPRESSION: No acute findings in the cervical spine. Possible small effusions, emphysema and pleural thickening in the lungs. Thank you for allowing us to participate in the care of your patient. Dictated and Authenticated by: Zander Avalos MD 08/22/2020 9:12 AM Central Time ([place] & [place]) [facility] - [facility] Final Radiology Report Call: [phone] assistance Online chat: [email or web address] Name: THAD DE Age: 79Years F Date: 08/22/2020 SSN: -- : 1940 Study: CT PELVIS WO CONT Requesting Physician: Elsie Garcia Images: [id number] Addl Studies: Provided Clinical History: TRAUMA, FALL AT HOME, PATIENT CONFUSED, HEMATOMA Contrast: Without Contrast Medium: Contrast Amount: Contrast Method: Page 1 of 2 PROCEDURE INFORMATION: Exam: CT Pelvis Without Contrast; Skeletal Exam date and time: 08/22/2020 8:50 AM Age: 79 years old Clinical indication: Other: Trauma, fall at home, patient confused, hematoma TECHNIQUE: Imaging protocol: Computed tomography images of the pelvis without contrast. Exam focused on the skeletal structures. Radiation optimization: All CT scans at this facility use at least one of these dose optimization techniques: automated exposure control; mA and/or kV adjustment per patient size (includes targeted exams where dose is matched to clinical indication); or iterative reconstruction. COMPARISON: 1. CT Abdomen Pelvis w Cont 08/18/2020 6:[address] Abdomen Pelvis wo Cont 01/25/2020 2: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 Vasculature: The vasculature demonstrates moderate atherosclerotic candy cification. Bones/joints: Bilateral cemented bipolar hip prostheses produce streak metal artifact. Within the limits of artifact, there is no loosening or periprosthetic fracture. Lumbosacral degenerative disc disease is severe. 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 There is no fracture involving the pelvis. Severe degenerative change involves the lower lumbar spine facets. There is a healed fracture at S3-4. Soft tissues: There are fluid collections in the subcutaneous fat of each gluteal region extending into each thigh. These collections partially contact the underlying fascia. 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 These collections were predominantly excluded from the field of view of the 08/18/2020 study. The size of the lesions have decreased approximately 50% since 06/13/2020 with resolution of the previously seen hemorrhagic components. Subcutaneous edema involving each thigh is severe on the left and moderate on the right. IMPRESSION: 1. No acute fracture. 2. Approximately 50% interval decrease in size of the previously identified bilateral gluteal through proximal thigh fluid collections in the subcutaneous fat with interval resolution of hemorrhagic components. 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 3. Moderate to severe subcutaneous edema involving the thighs. 4. Bilateral bipolar hip prostheses without complication. 5. Severe degenerative change of the lower lumbar spine. Thank you for allowing us to participate in the care of your patient. Dictated and Authenticated by: Darling Collier, - Re-Assessments/Exams Free Text/Narrative Re-Assessment/Exam: 08/22/20 Patient remains pleasantly confused. States no pain while laying quietly in bed GCS at one hour: 14 0910: CT head revealed 5x3cm hemorrhage in the parietal/temporal lobe; Decision to transfer patient made at this time. Case discussed with Dr. Cuellar at [facility] in [place] who kindly agreed to accept this patient for transfer d/t trauma an intracranial hemorrhage. Discussed findings of lab work, examination, and imaging with patient and neighbor as well as need for transfer to higher level of care for ongoing monitoring of acute bleed. Neighbor verbalized understanding and stated she would be contacting Liban JIMÉNEZ, her sister Deidrre C-Spine cleared via imaging and physical exam. C-Collar removed at 0931. No acute processes noted to right hip; no fracture or dislocation. GCS at discharge: 14 Departure - Departure Time of Disposition: 09:48 Disposition: DC/Tfer to Acute Hospital 02 Condition: Fair Clinical Impression: Intracranial hemorrhage, History of femoropopliteal bypass, Trauma Fall as cause of accidental injury at home as place of occurrence Qualifiers: Encounter type: initial encounter Qualified Code(s): W19.XXXA - Unspecified fall, initial encounter Hematoma of right thigh Qualifiers: Encounter type: initial encounter Qualified Code(s): S70.11XA - Contusion of right thigh, initial encounter Ecchymosis of eye Qualifiers: Encounter type: subsequent encounter Laterality: left Qualified Code(s): S05.12XD - Contusion of eyeball and orbital tissues, left eye, subsequent encounter - Discharge Information Forms: ED Department Discharge, Interfacility Transfer [facility] Sepsis Event Note (ED) - Evaluation Sepsis Screening Result: No Definite Risk - Focused Exam Vital Signs: Vital Signs Temp Pulse Resp BP Pulse Ox 08/22/20 09:15 98 08/22/20 09:04 74 12 144/59 H 90 L 08/22/20 08:16 97.9 F 106 H 16 163/61 H 90 L - My Orders Last 24 Hours: My Active Orders 08/22/20 08:11 DRUG SCREEN URINE BIORAD [URCHEM] Urgent UA RFX RAMBO AND CULT IF INDIC [URIN] Stat 08/22/20 08:34 EKG Documentation Completion [RC] STAT - Assessment/Plan Last 24 Hours: My Active Orders 08/22/20 08:11 DRUG SCREEN URINE BIORAD [URCHEM] Urgent UA RFX RAMBO AND CULT IF INDIC [URIN] Stat 08/22/20 08:34 EKG Documentation Completion [RC] STAT
[2020-08-22 08:50] LABS: ANION GAP 11.3 mEq/L (7-13); CHLORIDE,CL 104 mmol/L (98-107); SODIUM,NA 140 mmol/L (136-145)
[2020-08-22 09:01] LABS: PTT,PARTIAL THROMBOPLSTIN TIME 22.3 SEC (22.0-34.0)
--- NOTE | 2020-08-22 09:07 | CT ---
PROCEDURE INFORMATION: Exam: CT Head Without Contrast Exam date and time: 08/22/2020 8:50 AM Age: 79 years old Clinical indication: Injury or trauma; Blunt trauma (contusions or hematomas); Patient HX: Fall, on blood thinners. ; Additional info: Trauama; Fall at home, patient confused TECHNIQUE: Imaging protocol: Computed tomography of the head without contrast. Radiation optimization: All CT scans at this facility use at least one of these dose optimization techniques: automated exposure control; mA and/or kV adjustment per patient size (includes targeted exams where dose is matched to clinical indication); or iterative reconstruction. COMPARISON: CT Head wo Cont 08/18/2020 5:17 AM FINDINGS: Brain: Stable central and cortical moderate to severe atrophy and small vessel ischemic disease is noted. There is now a small area of intracranial hemorrhage involving the right posterior temporoparietal lobe. Cerebral ventricles: No ventriculomegaly. Bones/joints: Unremarkable. No acute fracture. Paranasal sinuses: Visualized sinuses are unremarkable. No fluid levels. Mastoid air cells: Visualized mastoid air cells are well aerated. Soft tissues: The left scalp hematoma is slightly smaller. IMPRESSION: There is now a small focus of hemorrhage measuring 5 x 3 mm involving the right posterior temporal/parietal lobe.
--- NOTE | 2020-08-22 09:12 | CT ---
PROCEDURE INFORMATION: Exam: CT Cervical Spine Without Contrast Exam date and time: 08/22/2020 8:50 AM Age: 79 years old Clinical indication: Other: Trauama; Fall at home, patient confused TECHNIQUE: Imaging protocol: Computed tomography images of the cervical spine without contrast. Radiation optimization: All CT scans at this facility use at least one of these dose optimization techniques: automated exposure control; mA and/or kV adjustment per patient size (includes targeted exams where dose is matched to clinical indication); or iterative reconstruction. COMPARISON: No relevant prior studies available. FINDINGS: Bones/joints: No acute fracture. Normal alignment. Discs/Spinal canal/Neural foramina: C2/3: No acute abnormality. C3/4: No acute abnormality. C4/5: No acute abnormality. C5/6: Degenerative disc disease. No protrusion, extrusion, stenosis or foraminal narrowing. C6/7: Mild posterior spurring and degenerative disc disease without disc protrusion, extrusion, foraminal narrowing or stenosis. C7/T1: No acute abnormality. Lungs: Biapical pleural thickening. Findings of emphysema. Possible small bilateral effusions. Soft tissues: Unremarkable. IMPRESSION: No acute findings in the cervical spine. Possible small effusions, emphysema and pleural thickening in the lungs.
--- NOTE | 2020-08-22 09:35 | CT ---
PROCEDURE INFORMATION: Exam: CT Pelvis Without Contrast; Skeletal Exam date and time: 08/22/2020 8:50 AM Age: 79 years old Clinical indication: Other: Trauma, fall at home, patient confused, hematoma TECHNIQUE: Imaging protocol: Computed tomography images of the pelvis without contrast. Exam focused on the skeletal structures. Radiation optimization: All CT scans at this facility use at least one of these dose optimization techniques: automated exposure control; mA and/or kV adjustment per patient size (includes targeted exams where dose is matched to clinical indication); or iterative reconstruction. COMPARISON: 1. CT Abdomen Pelvis w Cont 08/18/2020 6:[address] Abdomen Pelvis wo Cont 01/25/2020 2: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 Vasculature: The vasculature demonstrates moderate atherosclerotic calcification. Bones/joints: Bilateral cemented bipolar hip prostheses produce streak metal artifact. Within the limits of artifact, there is no loosening or periprosthetic fracture. Lumbosacral degenerative disc disease is severe. 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 There is no fracture involving the pelvis. Severe degenerative change involves the lower lumbar spine facets. There is a healed fracture at S3-4. Soft tissues: There are fluid collections in the subcutaneous fat of each gluteal region extending into each thigh. These collections partially contact the underlying fascia. 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 These collections were predominantly excluded from the field of view of the 08/18/2020 study. The size of the lesions have decreased approximately 50% since 06/13/2020 with resolution of the previously seen hemorrhagic components. Subcutaneous edema involving each thigh is severe on the left and moderate on the right. IMPRESSION: 1. No acute fracture. 2. Approximately 50% interval decrease in size of the previously identified bilateral gluteal through proximal thigh fluid collections in the subcutaneous fat with interval resolution of hemorrhagic components. 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 3. Moderate to severe subcutaneous edema involving the thighs. 4. Bilateral bipolar hip prostheses without complication. 5. Severe degenerative change of the lower lumbar spine.
== END 2020-08-22 10:10 ==
LOC: DL.ED 07:58
DX: S06.309A Unspecified focal traumatic brain injury with loss of consciousness of unspecified duration, initial encounter (principal); S05.12XA Contusion of eyeball and orbital tissues, left eye, initial encounter; S70.11XA Contusion of right thigh, initial encounter; I10 Essential (primary) hypertension; M19.90 Unspecified osteoarthritis, unspecified site; Z72.0 Tobacco use; Z79.82 Long term (current) use of aspirin; Z79.899 Other long term (current) drug therapy; Z95.820 Peripheral vascular angioplasty status with implants and grafts; Z88.8 Allergy status to other drugs, medicaments and biological substances; W19.XXXA Unspecified fall, initial encounter
CPT/HCPCS: 36415; 70450; 72125; 72192; 80053; 80307; 84484; 85025; 85384; 85610; 85730; 93005; 93010; 99285; 99285-25

== ENCOUNTER 2020-08-25 10:46 | Inpatient (IN) | payer MEDICARE, OTHER ==
--- NOTE | 2020-08-25 13:12 | PCM.HP ---
H&P History of Present Illness - General Date of Service: 08/25/20 Source of Information: Patient History Limitations: Reports: No Limitations - History of Present Illness Initial Comments - Free Text/Narative: 79 year old female with PMH significant for HTN, osteoporosis, a fib, tobacco use on ASA/plavix who had ground level fall and sustained, SAH Left clavicle fracture, Left coracoid process fracture. He was admitted and managed at [facility]. Patient was discharged to our swing bed to continue physical therapy and Occupational Therapy. On interview patient said she is okay. Just feeling sleepy. She denies pain. Improves with: Reports: None Worsens with: Reports: None Associated Symptoms: Reports: No Other Symptoms - Related Data Allergies/Adverse Reactions: Allergies Allergy/AdvReac Type Severity Reaction Status Date / Time prednisone AdvReac Severe bilateral Verified 08/25/20 10:42 arm and shoulder pain Home Medications: Home Meds ALPRAZolam [Xanax] 0.5 mg PO BID PRN 06/13/20 [History] Acetaminophen [Tylenol Extra Strength] 1,000 mg PO Q8HR 06/13/20 [History] Aspirin [Halfprin] 81 mg PO DAILY 06/13/20 [History] Biotin 1,000 mcg PO DAILY 06/13/20 [History] Cetirizine [ZyrTEC] 10 mg PO DAILY 06/13/20 [History] Cholecalciferol (Vitamin D3) [Vitamin D3] 2,000 unit PO DAILY 06/13/20 [History] Cyanocobalamin (Vitamin B12) [Vitamin B13] 500 mcg PO DAILY 06/13/20 [History] Escitalopram Oxalate [Lexapro] 10 mg PO DAILY 06/13/20 [History] Furosemide [Lasix] 20 mg PO DAILY 06/13/20 [History] Glucosamine [Glucosamine Sulfate] 3,000 mg PO DAILY 06/13/20 [History] Pantoprazole Sodium [Protonix] 40 mg PO DAILY 06/13/20 [History] Potassium Chloride [Klor-Con] 20 meq PO DAILY 06/13/20 [History] Raloxifene [Evista] 60 mg PO DAILY 06/13/20 [History] Vit A/Vit C/Vit E/Zinc/Copper [Preservision Areds Softgel] 1 cap PO BID 06/13/20 [History] rOPINIRole [Requip] 0.5 mg PO BEDTIME 06/13/20 [History] traMADol [Ultram] 50 mg PO Q8HR PRN 06/13/20 [History] Calcium Carbonate/Vitamin D3 [Calcium 600-Vit D3 400 Tablet] 1 tab PO BID 08/25/20 [History] Ferrous Sulfate 325 mg PO DAILY 08/25/20 [History] Past Medical History HEENT History: Reports: Cataract, Macular Degeneration Cardiovascular History: Reports: Afib, Hypertension Respiratory History: Reports: None Other Respiratory History: history of two chest tubes Gastrointestinal History: Reports: None Genitourinary History: Reports: Acute Renal Failure ASSISTANT COMMUNITY MANAGER History: Reports: None Musculoskeletal History: Reports: Arthritis, Other (See Below) Neurological History: Reports: Other (See Below) Other Neuro History: subdural hematoma Psychiatric History: Reports: None Endocrine/Metabolic History: Reports: None Hematologic History: Reports: None Immunologic History: Reports: None Oncologic (Cancer) History: Reports: None Dermatologic History: Reports: None - Infectious Disease History Infectious Disease History: Reports: Measles - Past Surgical History Head Surgeries/Procedures: Reports: None HEENT Surgical History: Reports: Cataract Surgery Cardiovascular Surgical History: Reports: None GI Surgical History: Reports: None Female Surgical History: Reports: None Endocrine Surgical History: Reports: None Neurological Surgical History: Reports: None Musculoskeletal Surgical History: Reports: Hip Replacement Other Musculoskeletal Surgeries/Procedures:: Clavicle fracture Oncologic Surgical History: Reports: None Social & Family History - Family History Family Medical History: No Pertinent Family History - Tobacco Use Tobacco Use Status *Q: Current Every Day Tobacco User Years of Tobacco use: 60 Packs/Tins Daily: 0.4 Second Hand Smoke Exposure: No - Caffeine Use Caffeine Use: Reports: Soda - Recreational Drug Use Recreational Drug Use: No - Living Situation & Occupation Living situation: Reports: Single, Alone Occupation: Retired H&P Review of Systems - Review of Systems: Review Of Systems: See Below (As per HPI) General: Reports: No Symptoms HEENT: Reports: No Symptoms Pulmonary: Reports: No Symptoms Cardiovascular: Reports: No Symptoms Gastrointestinal: Reports: No Symptoms Genitourinary: Reports: No Symptoms Musculoskeletal: Reports: No Symptoms Skin: Reports: No Symptoms Psychiatric: Reports: No Symptoms Neurological: Reports: No Symptoms Hematologic/Lymphatic: Reports: No Symptoms Immunologic: Reports: No Symptoms Exam - Exam Exam: See Below (As per HPI) - Vital Signs Weight: 97 lb 6.4 oz - Exam General: Alert, Oriented, 4 HEENT: PERRLA, Hearing Intact, Mucosa Moist & [place], Nares Patent, Normal Nasal Septum, Posterior Pharynx Clear, Conjunctiva Clear, EOMI, EACs Clear, TMs Clear Neck: Supple, Trachea Midline, 2 Lungs: Clear to Auscultation, Normal Respiratory Effort Cardiovascular: Regular Rate, Regular Rhythm GI/Abdominal Exam: Normal Bowel Sounds, Soft, Non-Tender, No Organomegaly, No Distention, No Abnormal Bruit, No Mass, Pelvis Stable (Female) Exam: Normal External Exam, Normal Speculum Exam, Normal Bimanual Exam Rectal (Female) Exam: Normal Exam, Normal Rectal Tone Back Exam: Normal Inspection, Full Range of Motion, NT Extremities: Normal Inspection, Normal Range of Motion, Non-Tender, No Pedal Edema, Normal Capillary Refill Skin: Warm, Dry, Intact Neurological: Cranial Nerves Intact, Reflexes Equal Bilateral Neuro Extensive - Mental Status: Alert, Oriented x3, Normal Mood/Affect, Normal Cognition Neuro Extensive - Motor, Sensory, Reflexes: CN II-XII Intact, Normal Gait, Normal Reflexes Psychiatric: Alert, Normal Affect, Normal Mood Problem List Initiated/Reviewed/Updated: Yes Assessment/Plan Comment:: 79 year old female with PMH significant for HTN, osteoporosis, a fib, tobacco use on ASA/plavix who had ground level fall and sustained, SAH Left clavicle fracture, Left coracoid process fracture. He was admitted and managed at [facility]. Patient was discharged to our swing bed to continue physical therapy and Occupational Therapy. #Status post fall #Subarachnoid hemorrhage #Left clavicular fracture #Left coracoid process fracture Continue physical therapy and Occupational Therapy Tylenol and tramadol for pain control Follow-up with neurosurgery in 2 weeks if repeat CTH #s/p angio with DCB of left SFA on 06/08/2020 and started on Plavix. Plavix discontinued continue aspirin #H/o syncope ECHO done; EF 60-65% Carotid ultrasound: < 50% of stenosis of bilateral internal arteries #HTN Continue home meds #h/o A-fib Rate controlled Continue home medication Not on chronic anticoagulation Continue ASA #Tobacco abuse Provide nicotine patch
[2020-08-25] MEDS ORDERED: Acetaminophen 325 MG Tab PO PRN (13:15)
[2020-08-25] MEDS ORDERED: traMADol 50 MG Tab PO PRN (13:19)
[2020-08-25] MEDS: Acetaminophen 500 MG Tab PO SCH ×2 (15:18→21:15)
[2020-08-25] MEDS: Furosemide 20 MG Tab PO SCH (15:19)
[2020-08-25] MEDS ORDERED: Heparin Sodium 5,000 Units/ML Vial SUBCUT SCH (21:00)
[2020-08-25] MEDS: ALPRAZolam 0.5 MG Tab PO PRN (21:14)
[2020-08-25] MEDS: rOPINIRole 0.25 MG Tab PO SCH (21:15)
[2020-08-25] MEDS: Lutein/Minerals/Vit A,C & E Tab PO SCH (21:15)
[2020-08-26] MEDS: Pantoprazole 40 MG Tab.CR PO SCH (06:02)
[2020-08-26] MEDS: Acetaminophen 500 MG Tab PO SCH ×3 (06:02→21:35)
[2020-08-26] MEDS: Potassium Chloride 10 MEQ Tab.ER PO SCH (08:22)
[2020-08-26] MEDS: Lutein/Minerals/Vit A,C & E Tab PO SCH ×2 (08:22→21:35)
[2020-08-26] MEDS: Cyanocobalamin (Vitamin B12) 1,000 MCG Tab PO SCH (08:23)
[2020-08-26] MEDS: Furosemide 20 MG Tab PO SCH (08:23)
[2020-08-26] MEDS: Ferrous Sulfate 325 MG Tab PO SCH (08:23)
[2020-08-26] MEDS: Escitalopram 10 MG Tab PO SCH (08:23)
[2020-08-26] MEDS: Cholecalciferol (Vitamin D3) 25 MCG Tab PO SCH (08:24)
[2020-08-26] MEDS: ALPRAZolam 0.5 MG Tab PO PRN ×2 (15:06→21:37)
[2020-08-26] MEDS: Nicotine 14 MG/24 Hr Patch TRDERM SCH (15:06)
[2020-08-26] MEDS: rOPINIRole 0.25 MG Tab PO SCH (21:35)
[2020-08-26] MEDS: Check Patch TRDERM SCH (21:39)
[2020-08-27] MEDS: Acetaminophen 500 MG Tab PO SCH ×3 (05:47→21:10)
[2020-08-27] MEDS: Pantoprazole 40 MG Tab.CR PO SCH (05:48)
[2020-08-27] MEDS: Furosemide 20 MG Tab PO SCH (09:28)
[2020-08-27] MEDS: Aspirin 81 MG Tab.EC PO SCH (09:28)
[2020-08-27] MEDS: Cholecalciferol (Vitamin D3) 25 MCG Tab PO SCH (09:29)
[2020-08-27] MEDS: ALPRAZolam 0.5 MG Tab PO PRN ×2 (09:29→21:10)
[2020-08-27] MEDS: Cyanocobalamin (Vitamin B12) 1,000 MCG Tab PO SCH (09:29)
[2020-08-27] MEDS: Escitalopram 10 MG Tab PO SCH (09:30)
[2020-08-27] MEDS: Ferrous Sulfate 325 MG Tab PO SCH (09:30)
[2020-08-27] MEDS: Lutein/Minerals/Vit A,C & E Tab PO SCH ×2 (09:30→21:09)
[2020-08-27] MEDS: Potassium Chloride 10 MEQ Tab.ER PO SCH (09:30)
[2020-08-27] MEDS: Nicotine 14 MG/24 Hr Patch TRDERM SCH (09:30)
[2020-08-27] MEDS: rOPINIRole 0.25 MG Tab PO SCH (21:09)
[2020-08-27] MEDS: Check Patch TRDERM SCH (21:11)
[2020-08-28] MEDS: Acetaminophen 500 MG Tab PO SCH ×3 (05:45→23:27)
[2020-08-28] MEDS: Pantoprazole 40 MG Tab.CR PO SCH (05:46)
[2020-08-28] MEDS: Lutein/Minerals/Vit A,C & E Tab PO SCH ×2 (08:14→21:31)
[2020-08-28] MEDS: Ferrous Sulfate 325 MG Tab PO SCH (08:14)
[2020-08-28] MEDS: Aspirin 81 MG Tab.EC PO SCH (08:15)
[2020-08-28] MEDS: Cholecalciferol (Vitamin D3) 25 MCG Tab PO SCH (08:15)
[2020-08-28] MEDS: Furosemide 20 MG Tab PO SCH (08:18)
[2020-08-28] MEDS: Escitalopram 10 MG Tab PO SCH (08:18)
[2020-08-28] MEDS: Cyanocobalamin (Vitamin B12) 1,000 MCG Tab PO SCH (08:18)
[2020-08-28] MEDS: Nicotine 14 MG/24 Hr Patch TRDERM SCH (08:19)
[2020-08-28] MEDS: Potassium Chloride 10 MEQ Tab.ER PO SCH (08:22)
[2020-08-28] MEDS: rOPINIRole 0.25 MG Tab PO SCH (21:31)
[2020-08-28] MEDS: ALPRAZolam 0.5 MG Tab PO PRN (21:31)
[2020-08-28] MEDS: Check Patch TRDERM SCH (21:33)
[2020-08-29] MEDS: Acetaminophen 500 MG Tab PO SCH ×3 (06:28→21:46)
[2020-08-29] MEDS: Pantoprazole 40 MG Tab.CR PO SCH (06:28)
[2020-08-29] MEDS: Furosemide 20 MG Tab PO SCH ×2 (08:23→09:30)
[2020-08-29] MEDS: Potassium Chloride 10 MEQ Tab.ER PO SCH (08:24)
[2020-08-29] MEDS: Ferrous Sulfate 325 MG Tab PO SCH (08:24)
[2020-08-29] MEDS: Cyanocobalamin (Vitamin B12) 1,000 MCG Tab PO SCH (08:24)
[2020-08-29] MEDS: Cholecalciferol (Vitamin D3) 25 MCG Tab PO SCH (08:24)
[2020-08-29] MEDS: Aspirin 81 MG Tab.EC PO SCH (08:24)
[2020-08-29] MEDS: Escitalopram 10 MG Tab PO SCH (08:24)
[2020-08-29] MEDS: Lutein/Minerals/Vit A,C & E Tab PO SCH ×2 (08:24→20:54)
[2020-08-29] MEDS: Nicotine 14 MG/24 Hr Patch TRDERM SCH (08:25)
[2020-08-29] MEDS: BIOTIN 1000 MCG PO SCH (16:30)
[2020-08-29] MEDS: GLUCOSAMINE PO SCH (16:31)
[2020-08-29] MEDS: rOPINIRole 0.25 MG Tab PO SCH (20:53)
[2020-08-29] MEDS: ALPRAZolam 0.5 MG Tab PO PRN (20:54)
[2020-08-29] MEDS: Check Patch TRDERM SCH (20:55)
[2020-08-30] MEDS: Pantoprazole 40 MG Tab.CR PO SCH (05:18)
[2020-08-30] MEDS: Acetaminophen 500 MG Tab PO SCH ×3 (05:18→21:49)
[2020-08-30] MEDS: Ferrous Sulfate 325 MG Tab PO SCH (08:14)
[2020-08-30] MEDS: Cholecalciferol (Vitamin D3) 25 MCG Tab PO SCH (08:14)
[2020-08-30] MEDS: Cyanocobalamin (Vitamin B12) 1,000 MCG Tab PO SCH (08:15)
[2020-08-30] MEDS: Aspirin 81 MG Tab.EC PO SCH (08:15)
[2020-08-30] MEDS: Loratadine 10 MG Tab PO SCH (08:15)
[2020-08-30] MEDS: Escitalopram 10 MG Tab PO SCH (08:16)
[2020-08-30] MEDS: Potassium Chloride 10 MEQ Tab.ER PO SCH (08:16)
[2020-08-30] MEDS: Lutein/Minerals/Vit A,C & E Tab PO SCH ×2 (08:16→20:47)
[2020-08-30] MEDS: Nicotine 14 MG/24 Hr Patch TRDERM SCH (08:17)
[2020-08-30] MEDS: Furosemide 20 MG Tab PO SCH (08:17)
[2020-08-30] MEDS: [UNRECOGNIZED DRUG - REMARK] PO SCH (13:31)
[2020-08-30] MEDS: Check Patch TRDERM SCH (20:46)
[2020-08-30] MEDS: rOPINIRole 0.25 MG Tab PO SCH (20:47)
[2020-08-30] MEDS: ALPRAZolam 0.5 MG Tab PO PRN (20:53)
[2020-08-31] MEDS: Pantoprazole 40 MG Tab.CR PO SCH (05:26)
[2020-08-31] MEDS: Acetaminophen 500 MG Tab PO SCH ×3 (05:26→21:18)
[2020-08-31] MEDS: Nicotine 14 MG/24 Hr Patch TRDERM SCH (09:35)
[2020-08-31] MEDS: Ferrous Sulfate 325 MG Tab PO SCH (09:36)
[2020-08-31] MEDS: Cholecalciferol (Vitamin D3) 25 MCG Tab PO SCH (09:36)
[2020-08-31] MEDS: Loratadine 10 MG Tab PO SCH (09:37)
[2020-08-31] MEDS: Furosemide 20 MG Tab PO SCH (09:37)
[2020-08-31] MEDS: Escitalopram 10 MG Tab PO SCH (09:37)
[2020-08-31] MEDS: Lutein/Minerals/Vit A,C & E Tab PO SCH ×2 (09:37→21:18)
[2020-08-31] MEDS: Aspirin 81 MG Tab.EC PO SCH (09:37)
[2020-08-31] MEDS: Potassium Chloride 10 MEQ Tab.ER PO SCH (09:37)
[2020-08-31] MEDS: [UNRECOGNIZED DRUG - REMARK] PO SCH (09:38)
[2020-08-31] MEDS: Cyanocobalamin (Vitamin B12) 1,000 MCG Tab PO SCH (09:42)
[2020-08-31] MEDS: ALPRAZolam 0.5 MG Tab PO PRN (21:18)
[2020-08-31] MEDS: rOPINIRole 0.25 MG Tab PO SCH (21:18)
[2020-08-31] MEDS: Check Patch TRDERM SCH (21:19)
[2020-09-01] MEDS: Acetaminophen 500 MG Tab PO SCH ×3 (05:33→22:15)
[2020-09-01] MEDS: Pantoprazole 40 MG Tab.CR PO SCH (05:33)
[2020-09-01] MEDS: Loratadine 10 MG Tab PO SCH (08:39)
[2020-09-01] MEDS: Potassium Chloride 10 MEQ Tab.ER PO SCH (08:39)
[2020-09-01] MEDS: Furosemide 20 MG Tab PO SCH (08:39)
[2020-09-01] MEDS: Aspirin 81 MG Tab.EC PO SCH (08:40)
[2020-09-01] MEDS: Escitalopram 10 MG Tab PO SCH (08:40)
[2020-09-01] MEDS: Cyanocobalamin (Vitamin B12) 1,000 MCG Tab PO SCH (08:40)
[2020-09-01] MEDS: Lutein/Minerals/Vit A,C & E Tab PO SCH ×2 (08:40→20:53)
[2020-09-01] MEDS: Ferrous Sulfate 325 MG Tab PO SCH (08:40)
[2020-09-01] MEDS: Cholecalciferol (Vitamin D3) 25 MCG Tab PO SCH (08:40)
[2020-09-01] MEDS: Nicotine 14 MG/24 Hr Patch TRDERM SCH (08:43)
[2020-09-01] MEDS: [UNRECOGNIZED DRUG - REMARK] PO SCH (08:44)
[2020-09-01] MEDS: amLODIPine 5 MG Tab PO SCH (14:06)
[2020-09-01] MEDS: rOPINIRole 0.25 MG Tab PO SCH (20:52)
[2020-09-01] MEDS: ALPRAZolam 0.5 MG Tab PO PRN (20:52)
[2020-09-01] MEDS: Check Patch TRDERM SCH (22:13)
[2020-09-02] MEDS: Pantoprazole 40 MG Tab.CR PO SCH (06:08)
[2020-09-02] MEDS: Acetaminophen 500 MG Tab PO SCH ×3 (06:08→20:58)
[2020-09-02] MEDS: Potassium Chloride 10 MEQ Tab.ER PO SCH (08:34)
[2020-09-02] MEDS: Loratadine 10 MG Tab PO SCH (08:36)
[2020-09-02] MEDS: Nicotine 14 MG/24 Hr Patch TRDERM SCH (08:36)
[2020-09-02] MEDS: Ferrous Sulfate 325 MG Tab PO SCH (08:36)
[2020-09-02] MEDS: Aspirin 81 MG Tab.EC PO SCH (08:37)
[2020-09-02] MEDS: Lutein/Minerals/Vit A,C & E Tab PO SCH ×2 (08:37→20:58)
[2020-09-02] MEDS: Cyanocobalamin (Vitamin B12) 1,000 MCG Tab PO SCH (08:38)
[2020-09-02] MEDS: amLODIPine 5 MG Tab PO SCH (08:38)
[2020-09-02] MEDS: Furosemide 20 MG Tab PO SCH (08:38)
[2020-09-02] MEDS: Escitalopram 10 MG Tab PO SCH (08:38)
[2020-09-02] MEDS: Cholecalciferol (Vitamin D3) 25 MCG Tab PO SCH (08:39)
[2020-09-02] MEDS: [UNRECOGNIZED DRUG - REMARK] PO SCH (08:44)
[2020-09-02] MEDS: rOPINIRole 0.25 MG Tab PO SCH (20:59)
[2020-09-02] MEDS: ALPRAZolam 0.5 MG Tab PO PRN (20:59)
[2020-09-02] MEDS: Check Patch TRDERM SCH (21:01)
[2020-09-03] MEDS: Pantoprazole 40 MG Tab.CR PO SCH (06:04)
[2020-09-03] MEDS: Acetaminophen 500 MG Tab PO SCH ×4 (06:05→21:04)
[2020-09-03] MEDS: Potassium Chloride 10 MEQ Tab.ER PO SCH (08:43)
[2020-09-03] MEDS: Loratadine 10 MG Tab PO SCH (08:44)
[2020-09-03] MEDS: Cholecalciferol (Vitamin D3) 25 MCG Tab PO SCH (08:44)
[2020-09-03] MEDS: amLODIPine 5 MG Tab PO SCH (08:45)
[2020-09-03] MEDS: Aspirin 81 MG Tab.EC PO SCH (08:45)
[2020-09-03] MEDS: Escitalopram 10 MG Tab PO SCH (08:45)
[2020-09-03] MEDS: Lutein/Minerals/Vit A,C & E Tab PO SCH ×2 (08:45→20:54)
[2020-09-03] MEDS: Cyanocobalamin (Vitamin B12) 1,000 MCG Tab PO SCH (08:46)
[2020-09-03] MEDS: Furosemide 20 MG Tab PO SCH (08:46)
[2020-09-03] MEDS: Nicotine 14 MG/24 Hr Patch TRDERM SCH (08:48)
[2020-09-03] MEDS: Ferrous Sulfate 325 MG Tab PO SCH (08:48)
[2020-09-03] MEDS: [UNRECOGNIZED DRUG - REMARK] PO SCH (10:55)
[2020-09-03] MEDS: Check Patch TRDERM SCH (20:53)
[2020-09-03] MEDS: ALPRAZolam 0.5 MG Tab PO PRN (20:54)
[2020-09-03] MEDS: rOPINIRole 0.25 MG Tab PO SCH (20:55)
[2020-09-04] MEDS: Acetaminophen 500 MG Tab PO SCH ×4 (05:45→23:09)
[2020-09-04] MEDS: Pantoprazole 40 MG Tab.CR PO SCH (05:45)
[2020-09-04] MEDS: Cholecalciferol (Vitamin D3) 25 MCG Tab PO SCH (09:13)
[2020-09-04] MEDS: Ferrous Sulfate 325 MG Tab PO SCH (09:13)
[2020-09-04] MEDS: Lutein/Minerals/Vit A,C & E Tab PO SCH ×2 (09:13→20:45)
[2020-09-04] MEDS: Potassium Chloride 10 MEQ Tab.ER PO SCH (09:13)
[2020-09-04] MEDS: Escitalopram 10 MG Tab PO SCH (09:13)
[2020-09-04] MEDS: Loratadine 10 MG Tab PO SCH (09:13)
[2020-09-04] MEDS: Cyanocobalamin (Vitamin B12) 1,000 MCG Tab PO SCH (09:13)
[2020-09-04] MEDS: Nicotine 14 MG/24 Hr Patch TRDERM SCH (09:14)
[2020-09-04] MEDS: Aspirin 81 MG Tab.EC PO SCH (09:14)
[2020-09-04] MEDS: amLODIPine 5 MG Tab PO SCH (09:14)
[2020-09-04] MEDS: Furosemide 20 MG Tab PO SCH (09:16)
[2020-09-04] MEDS: [UNRECOGNIZED DRUG - REMARK] PO SCH (09:17)
[2020-09-04] MEDS: rOPINIRole 0.25 MG Tab PO SCH (20:45)
[2020-09-04] MEDS: ALPRAZolam 0.5 MG Tab PO PRN (20:46)
[2020-09-04] MEDS: Check Patch TRDERM SCH (20:47)
[2020-09-05] MEDS: Acetaminophen 500 MG Tab PO SCH ×3 (06:08→21:10)
[2020-09-05] MEDS: Pantoprazole 40 MG Tab.CR PO SCH (06:09)
[2020-09-05] MEDS: Ferrous Sulfate 325 MG Tab PO SCH (09:32)
[2020-09-05] MEDS: amLODIPine 5 MG Tab PO SCH (09:32)
[2020-09-05] MEDS: Escitalopram 10 MG Tab PO SCH (09:33)
[2020-09-05] MEDS: Cyanocobalamin (Vitamin B12) 1,000 MCG Tab PO SCH (09:33)
[2020-09-05] MEDS: Nicotine 14 MG/24 Hr Patch TRDERM SCH (09:33)
[2020-09-05] MEDS: Loratadine 10 MG Tab PO SCH (09:33)
[2020-09-05] MEDS: Aspirin 81 MG Tab.EC PO SCH (09:34)
[2020-09-05] MEDS: Cholecalciferol (Vitamin D3) 25 MCG Tab PO SCH (09:34)
[2020-09-05] MEDS: Potassium Chloride 10 MEQ Tab.ER PO SCH (09:34)
[2020-09-05] MEDS: Furosemide 20 MG Tab PO SCH (09:34)
[2020-09-05] MEDS: Lutein/Minerals/Vit A,C & E Tab PO SCH ×2 (09:34→21:09)
[2020-09-05] MEDS: [UNRECOGNIZED DRUG - REMARK] PO SCH (09:35)
--- NOTE | 2020-09-05 11:34 | CT ---
PROCEDURE INFORMATION: Exam: CT Head Without Contrast Exam date and time: 09/05/2020 11:17 AM Age: 79 years old Clinical indication: Other: F/up head bleed TECHNIQUE: Imaging protocol: Computed tomography of the head without contrast. Radiation optimization: All CT scans at this facility use at least one of these dose optimization techniques: automated exposure control; mA and/or kV adjustment per patient size (includes targeted exams where dose is matched to clinical indication); or iterative reconstruction. COMPARISON: CT Head wo Cont 08/22/2020 8:50 AM FINDINGS: Brain: Prominent sulci. Patchy hypodensity of the cerebral white matter which are nonspecific but likely secondary to microangiopathic changes. Bilateral basal ganglia lacunes are present. Cerebral ventricles: The ventricles are prominent secondary to diffuse volume loss/atrophy. Bones/joints: Unremarkable. No acute fracture. Paranasal sinuses: Visualized sinuses are unremarkable. No fluid levels. Mastoid air cells: Visualized mastoid air cells are well aerated. Soft tissues: Unremarkable. IMPRESSION: Chronic age related changes but no evidence of acute intracranial pathology. Previously identified small focus of right temporal hemorrhage has resolved.
[2020-09-05] MEDS: ALPRAZolam 0.5 MG Tab PO PRN (21:10)
[2020-09-05] MEDS: rOPINIRole 0.25 MG Tab PO SCH (21:10)
[2020-09-05] MEDS: Check Patch TRDERM SCH (21:13)
[2020-09-06] MEDS: Acetaminophen 500 MG Tab PO SCH (05:53)
[2020-09-06] MEDS: Pantoprazole 40 MG Tab.CR PO SCH (05:53)
[2020-09-06] MEDS: Cyanocobalamin (Vitamin B12) 1,000 MCG Tab PO SCH (09:19)
[2020-09-06] MEDS: Cholecalciferol (Vitamin D3) 25 MCG Tab PO SCH (09:20)
[2020-09-06] MEDS: Lutein/Minerals/Vit A,C & E Tab PO SCH (09:20)
[2020-09-06] MEDS: Escitalopram 10 MG Tab PO SCH (09:21)
[2020-09-06] MEDS: Potassium Chloride 10 MEQ Tab.ER PO SCH (09:21)
[2020-09-06] MEDS: amLODIPine 5 MG Tab PO SCH (09:21)
[2020-09-06] MEDS: Aspirin 81 MG Tab.EC PO SCH (09:21)
[2020-09-06] MEDS: Ferrous Sulfate 325 MG Tab PO SCH (09:21)
[2020-09-06] MEDS: Loratadine 10 MG Tab PO SCH (09:22)
[2020-09-06] MEDS: Furosemide 20 MG Tab PO SCH (10:53)
[2020-09-06] MEDS: Nicotine 14 MG/24 Hr Patch TRDERM SCH (10:53)
[2020-09-06] MEDS: [UNRECOGNIZED DRUG - REMARK] PO SCH (12:06)
--- NOTE | 2020-09-06 14:12 | PCM.DCSUM1 ---
Discharge Summary - Hospital Course Free Text/Narrative:: 79F w/ pmh afib, HT, smoker, PVD, syncope here for swing bed stay following a fall c/b SAH, left clavicular fxt and left coracoid process fxt. Her stay was uncomplicated. She progressed well w/ PT/OT. Pt had a follow up CT head as per neurosurgical follow up instructions which demonstrated resolution of SAH. Pt was discharged home w/ home care services and RW. She requires these services for further PT/OT strengthening and conditioning, med compliance and education. 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 She was advised to follow up w/ her PCP in the short term to discuss being weaned off Xanax as this puts her at high risk of recurrent falls, trauma, including further head trauma. - Discharge Data Discharge Date: 09/06/20 Discharge Disposition: Home, W Home Health Agency 06 Condition: Good - Referral to Home Health Date of Face to Face Encounter: 09/06/20 Reason for Homebound Status: medically frail. PT/OT for strength and condition ing, risk of falls. VS monitoring Primary Care Physician: Sebas Simons MD Skilled Need: wound care. home PT. assistance w/ med compliance. assistance w/ med education - Patient Summary/Data Consults: Consultations 08/25/20 13:15 OT Evaluation and Treatment [CONS] Routine PT Evaluation and Treatment [CONS] Routine - Patient Instructions Diet: Heart Healthy Diet Other/Special Instructions: Discuss with your PCP regarding tapering off on your Xanax use. This is a high risk for falls, confusion and disorientation. You had bleeding in your brain and it the next time it could be even more severe. Use the walker as needed. Follow up with your neurosurgery appointments. See attached discharge instructions given to you by the Printing Equipment Mechanic Apprentice. - Discharge Plan *PRESCRIPTION DRUG MONITORING PROGRAM REVIEWED*: Not Applicable *COPY OF PRESCRIPTION DRUG MONITORING REPORT IN PATIENT JULIET: Not Applicable Home Medications: Home Meds ALPRAZolam [Xanax] 0.5 mg PO BID PRN 06/13/20 [History] Acetaminophen [Tylenol Extra Strength] 1,000 mg PO Q8HR 06/13/20 [History] Aspirin [Halfprin] 81 mg PO DAILY 06/13/20 [History] Biotin 1,000 mcg PO DAILY 06/13/20 [History] Cetirizine [ZyrTEC] 10 mg PO DAILY 06/13/20 [History] Cholecalciferol (Vitamin D3) [Vitamin D3] 2,000 unit PO DAILY 06/13/20 [History] Cyanocobalamin (Vitamin B12) [Vitamin B13] 500 mcg PO DAILY 06/13/20 [History] Escitalopram Oxalate [Lexapro] 10 mg PO DAILY 06/13/20 [History] Furosemide [Lasix] 20 mg PO DAILY 06/13/20 [History] Glucosamine [Glucosamine Sulfate] 3,000 mg PO DAILY 06/13/20 [History] Pantoprazole Sodium [Protonix] 40 mg PO DAILY 06/13/20 [History] Potassium Chloride [Klor-Con] 20 meq PO DAILY 06/13/20 [History] Raloxifene [Evista] 60 mg PO DAILY 06/13/20 [History] Vit A/Vit C/Vit E/Zinc/Copper [Preservision Areds Softgel] 1 cap PO BID 06/13/20 [History] rOPINIRole [Requip] 0.5 mg PO BEDTIME 06/13/20 [History] traMADol [Ultram] 50 mg PO Q8HR PRN 06/13/20 [History] Calcium Carbonate/Vitamin D3 [Calcium 600-Vit D3 400 Tablet] 1 tab PO BID 08/25/20 [History] Ferrous Sulfate 325 mg PO DAILY 08/25/20 [History] Patient Handouts: Clavicle Fracture, [id number], Weakness, [id number] - Discharge Summary/Plan Comment DC Time >30 min.: Yes (35 min) - General Info Date of Service: 09/06/20 - Patient Data Vitals - Most Recent: Last Vital Signs Temp 98.6 F 09/06/20 08:30 Pulse 71 09/06/20 08:30 Resp 20 09/06/20 08:30 BP 169/55 H 09/06/20 09:21 Pulse Ox 97 09/06/20 08:30 Weight - Most Recent: 89 lb 9.6 oz Med Orders - Current: Current Medications Discontinued Medications Acetaminophen (Tylenol) 650 mg PO Q4H PRN PRN Reason: Pain (Mild 1-3)/fever Acetaminophen (Tylenol Extra Strength) 1,000 mg PO Q8HR [facility] Last Admin: 09/06/20 05:53 Dose: 1,000 mg Documented by: Alprazolam (Xanax) 0.5 mg PO BID PRN PRN Reason: Anxiety Last Admin: 09/05/20 21:10 Dose: 0.5 mg Documented by: Amlodipine Besylate (Norvasc) 5 mg PO DAILY [facility] Last Admin: 09/06/20 09:21 Dose: 5 mg Documented by: Aspirin (Halfprin) 81 mg PO DAILY [facility] Last Admin: 09/06/20 09:21 Dose: 81 mg Documented by: Cholecalciferol (Vitamin D3) 50 mcg PO DAILY [facility] Last Admin: 09/06/20 09:20 Dose: 50 mcg Documented by: Cyanocobalamin (Vitamin B12) 500 mcg PO DAILY [facility] Last Admin: 09/06/20 09:19 Dose: 500 mcg Documented by: Escitalopram Oxalate (Lexapro) 10 mg PO DAILY [facility] Last Admin: 09/06/20 09:21 Dose: 10 mg Documented by: Ferrous Sulfate (Ferrous Sulfate) 325 mg PO DAILY [facility] Last Admin: 09/06/20 09:21 Dose: 325 mg Documented by: Furosemide (Lasix) 20 mg PO DAILY [facility] Last Admin: 09/06/20 10:53 Dose: Not Given Documented by: Heparin Sodium (Porcine) (Heparin Sodium) 5,000 units SUBCUT Q12HR [facility] Last Admin: 08/25/20 22:15 Dose: Not Given Documented by: Loratadine (Claritin) 10 mg PO DAILY [facility] Last Admin: 09/06/20 09:22 Dose: 10 mg Documented by: Miscellaneous Information (Check Patch) 1 ea TRDERM BEDTIME [facility] Last Admin: 09/05/20 21:13 Dose: 1 ea Documented by: Multivitamins/Minerals (I-Hemal) 1 each PO BID [facility] Last Admin: 09/06/20 09:20 Dose: 1 each Documented by: Nicotine (Habitrol) 14 mg TRDERM DAILY [facility] Last Admin: 09/06/20 10:53 Dose: Not Given Documented by: Non-Formulary Medication (Biotin [Biotin]) 1,000 mcg PO DAILY [facility] Last Admin: 08/29/20 16:30 Dose: Not Given Documented by: Non-Formulary Medication (Glucosamine [Glucosamine Sulfate]) 3,000 mg PO DAILY [facility] Last Admin: 08/29/20 16:31 Dose: Not Given Documented by: Raloxifene 60 Mg Tab (Non-Form Med) 60 mg PO DAILY [facility] Last Admin: 09/06/20 12:06 Dose: 60 mg Documented by: Pantoprazole Sodium (Protonix) 40 mg PO ACBRK [facility] Last Admin: 09/06/20 05:53 Dose: 40 mg Documented by: Potassium Chloride (Klor-Con 10) 20 meq PO WITHBREAKFAST [facility] Last Admin: 09/06/20 09:21 Dose: 20 meq Documented by: Ropinirole HCl (Requip) 0.5 mg PO BEDTIME [facility] Last Admin: 09/05/20 21:10 Dose: 0.5 mg Documented by: Tramadol HCl (Ultram) 50 mg PO Q8HR PRN PRN Reason: Pain - Exam Quality Assessment: Denies: Supplemental Oxygen General: Reports: Alert, Oriented HEENT: Reports: Other (left face ecchymosis) Neck: Reports: Supple Lungs: Reports: Clear to Auscultation Cardiovascular: Reports: Regular Rate, Regular Rhythm GI/Abdominal Exam: Normal Bowel Sounds, Soft, Non-Tender, No Distention Back Exam: Reports: Normal Inspection Extremities: No Pedal Edema Skin: Reports: Other (small, dry clean ulcer on left medial malleolus) Neurological: Reports: No New Focal Deficit Psy/Mental Status: Reports: Alert, Normal Affect, Normal Mood
== END 2020-09-06 12:30 | disposition home health service (06) | DRG 948 ==
LOC: DL.MS 10:46
PROVIDERS: ADMIT Student in an Organized Health Care Education/Training Program; ATTEND Internal Medicine
DX: R53.1 Weakness (principal); I10 Essential (primary) hypertension; M81.0 Age-related osteoporosis without current pathological fracture; I48.91 Unspecified atrial fibrillation; S42.002G Fracture of unspecified part of left clavicle, subsequent encounter for fracture with delayed healing; S42.13 Fracture of coracoid process; S06.6X0D Traumatic subarachnoid hemorrhage without loss of consciousness, subsequent encounter; W19.XXXD Unspecified fall, subsequent encounter; H35.30 Unspecified macular degeneration; M19.90 Unspecified osteoarthritis, unspecified site; Z96.649 Presence of unspecified artificial hip joint; F17.210 Nicotine dependence, cigarettes, uncomplicated; Z79.82 Long term (current) use of aspirin; Z79.01 Long term (current) use of anticoagulants; Z88.8 Allergy status to other drugs, medicaments and biological substances; Z79.899 Other long term (current) drug therapy; Z98.49 Cataract extraction status, unspecified eye
CPT/HCPCS: 70450; 97110-GO; 97110-GP; 97116-GP; 97129-GO; 97162-GP; 97166-GO; 97530-GO; 97535-GO; 99305; 99316; A9270-GY